=== PATIENT | female | born 1935 | race Hispanic/Latino ===

== ENCOUNTER 2017-12-23 10:35 | Inpatient (IN) | payer MEDICARE, BC ==
[2017-12-23 10:37] VITALS: BMI 24.7
--- NOTE | 2017-12-23 12:15 | RAD ---
HISTORY: Unsteadiness COMPARISON: 08/04/2015 TECHNIQUE: Chest PA and lateral FINDINGS: LUNGS: No active pulmonary disease. PLEURA: No significant pleural effusion identified. No pneumothorax apparent. CARDIOVASCULAR: No radiographic findings to suggest acute or significant cardiovascular disease. OSSEOUS STRUCTURES: No significant abnormalities. VISUALIZED UPPER ABDOMEN: Normal. OTHER FINDINGS: None. IMPRESSION: No active disease. No significant interval change compared to the prior examination(s).
[2017-12-23 12:28] LABS: BASO # 0.1 K/uL (0.0-0.2); BASO % 0.7 % (0.0-2.0); EOS # 0.3 K/uL (0.0-0.7); EOS % 4.1 % (0.0-4.0); HEMOGLOBIN 12.6 g/dL (12.0-16.0); LYMPH # 1.5 K/uL (1.0-4.3); LYMPH % 17.2 % (20.0-40.0); MEAN CELL VOLUME 91.2 fl (81.0-99.0); MEAN CORPUSCULAR HEMOGLOBIN 30.4 pg (27.0-31.0); MEAN CORPUSCULAR HGB CONC 33.3 g/dL (33.0-37.0); MEAN PLATELET VOLUME 8.2 fl (7.2-11.7); MONO # 0.8 K/uL (0.0-0.8); MONO % 8.9 % (0.0-10.0); NEUT # 5.9 K/uL (1.8-7.0); NEUT % 69.1 % (50.0-75.0); NRBC % 0.2 % (0.0-0.0); RBC 4.15 Mil/uL (3.80-5.20); RED CELL DISTRIBUTION WIDTH 14.7 % (11.5-14.5); WHITE BLOOD COUNT 8.5 K/uL (4.8-10.8)
--- NOTE | 2017-12-23 12:29 | ED PDOC ---
HPI: General Adult Time Seen by Provider: 12/23/17 11:09 Chief Complaint (Nursing): Dizziness/Lightheaded Chief Complaint (Provider): Lightheadedness History Per: Patient History/Exam Limitations: no limitations Additional Complaint(s): Pt states she placed a Lidocaine 4% patch on her R hip 5 days ago secondary to pain, next day started feeling itch and noticed generalized rash, resolved on its own the next day. Started feeling unsteady while walking after getting up from sitting position, constant since then. Denies BALLARD, paresthesias, weakness, visual changes, CP, SOB. NIHSS Stroke Scale - Date/Time Evaluation Performed Date Performed: 12/23/17 When Was NIHSS Performed: Baseline - How Severe is the Stroke Level of Consciousness: 0=Alert LOC to Questions: 0=Both comments correct LOC to commands: 0=Obeys both correctly Best Gaze: 0=Normal Visual: 0=No visual loss Facial: 0=Normal Motor Arm - Left: 0=No drift Motor Arm - Right: 0=No drift Motor Leg - Left: 0=No drift Motor Leg - Right: 0=No drift Limb Ataxia: 0=Absent Sensory: 0=Normal Best Language: 0=No aphasia Dysarthia: 0=Normal articulation Extinction & Inattention (Neglect): 0=Normal, no object Score: 0 rTPA Inclusion/Exclusion - Refusal of Treatment Patient Refused Treatment: No - Inclusion Criteria for Altepase Patient is 18 years or Older: Yes The Clinical Diagnosis of Ischemic Stroke That is Causing a Potentially Disabling Neurological Deficit: No Time of Onset is Well Established to be Less Than 270 Minute Before Treatment Would Begin: No Risk/Benefit Discussed With Patient/Family Member Present: No Past Medical History Reviewed: Nursing Documentation, Vital Signs Vital Signs: Last Vital Signs Temp 97.9 F 12/23/17 10:37 Pulse 98 H 12/23/17 10:37 Resp 16 12/23/17 10:37 BP 144/83 12/23/17 10:37 Pulse Ox 96 12/23/17 15:15 - Medical History PMH: Atrial Fibrillation, Cardia Arrhythmia, CVA (Chronic left leg weakness; 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), HTN - Family History Family History: States: Unknown Family Hx - Living Arrangements Living Arrangements: Alone - Social History Current smoker - smoking cessation education provided: No - Home Medications Home Medications: Ambulatory Orders Medication Instructions Recorded Hydrochlorothiazide/Triamter 1 cap PO HS 08/04/15 [Dyazide 25 mg-37.5 mg] Lisinopril [Lisinopril] 10 mg PO QPM 08/04/15 Metformin Hydrochloride/Brenda 1 tab PO BID 08/04/15 [Janumet 500 mg-50 mg] Simvastatin 40 mg PO HS 08/04/15 Sodium Chloride [Nasal Saline 45 1 spr NS TID #1 spr 08/04/15 ml] Warfarin [Coumadin] 5 mg PO DAILY 08/04/15 amLODIPine [Norvasc] 10 mg PO DAILY 08/04/15 - Allergies Allergies/Adverse Reactions: Allergies Allergy/AdvReac Type Severity Reaction Status Date / Time No Known Allergies Allergy Verified 08/04/15 10:21 Review of Systems Constitutional: Negative for: Fever, Chills Eyes: Negative for: Vision Change Cardiovascular: Negative for: Chest Pain, Palpitations Respiratory: Negative for: Cough, Shortness of Breath Gastrointestinal: Negative for: Nausea, Vomiting, Abdominal Pain, Diarrhea Genitourinary Female: Negative for: Dysuria, Hematuria Musculoskeletal: Negative for: Neck Pain, Back Pain Skin: Negative for: Rash, Lesions Neurological: Negative for: Weakness, Numbness, Incoordination, Change in Speech , Confusion, Seizures, Altered Mental Status, Headache, Dizziness Physical Exam - Reviewed Nursing Documentation Reviewed: Yes Vital Signs Reviewed: Yes - Physical Exam Appears: Positive for: Well, No Acute Distress Head Exam: Positive for: ATRAUMATIC, NORMAL INSPECTION Skin: Positive for: Normal Color, Warm, Dry Eye Exam: Positive for: EOMI, PERRL ENT: Positive for: TM Is/Are (R ear canal with cerumen) Neck: Positive for: Normal, Painless ROM, Supple Cardiovascular/Chest: Positive for: Murmur, Irregularly Irregular. Negative for : Bradycardia, Tachycardia Respiratory: Positive for: Normal Breath Sounds. Negative for: Rales, Rhonchi, Wheezing Extremity: Positive for: Normal ROM Neurologic/Psych: Positive for: Alert, regional forester II-XII, Oriented, Cerebellar Tests ( WNL). Negative for: Motor/Sensory Deficits, Aphasia, Facial Droop - Laboratory Results Result Diagrams: 12/23/17 12:20 12/23/17 12:20 - ECG O2 Sat by Pulse Oximetry: 96 Medical Decision Making Medical Decision Makin yo female with unsteady gait. - labs - EKG - CXR - CT head Accession No. : [id number] Patient Name / ID : TANESHA GEORGE / [id number] Exam Date : 12/23/2017 11:28:42 ( Approved ) Study Comment : Sex / Age : F / 82Y Creator : Jeremiah Delgado MD Dictator : Jeremiah Delgado MD Ironworker Foreman : Factory Assembler : Jeremiah Delgado MD Approver2 : Report Date : 12/23/2017 12:13:55 My Comment : HISTORY: Unsteadiness COMPARISON: 08/04/2015 TECHNIQUE: Chest PA and lateral FINDINGS: LUNGS: No active pulmonary disease. PLEURA: No significant pleural effusion identified. No pneumothorax apparent. CARDIOVASCULAR: No radiographic findings to suggest acute or significant cardiovascular disease. OSSEOUS STRUCTURES: No significant abnormalities. VISUALIZED UPPER ABDOMEN: Normal. OTHER FINDINGS: None. IMPRESSION: No active disease. No significant interval change compared to the prior examination(s). Accession No. : [id number] Patient Name / ID : TANESHA GEORGE / [id number] Exam Date : 12/23/2017 12:58:17 ( Approved ) Study Comment : Sex / Age : F / 82Y Creator : Jeremiah Delgado MD Dictator : Jeremiah Delgado MD Ironworker Foreman : Factory Assembler : Jeremiah Delgado MD Approver2 : Report Date : 12/23/2017 13:37:18 My Comment : PROCEDURE: CT HEAD WITHOUT CONTRAST. HISTORY: Unsteadiness COMPARISON: 02/23/2014 TECHNIQUE: Axial computed tomography images were obtained through the head/brain without intravenous contrast. Coronal and sagittal reconstructed images. Radiation dose: Total exam DLP = 893.1 mGy-cm. This CT exam was performed using one or more of the following dose reduction techniques: Automated exposure control, adjustment of the mA and/or kV according to patient size, and/or use of iterative reconstruction technique. FINDINGS: HEMORRHAGE: No intracranial hemorrhage. BRAIN: No mass effect or edema. Cortical and cerebellar atrophy, periventricular small vessel disease. VENTRICLES: Unremarkable. No hydrocephalus. CALVARIUM: Unremarkable. PARANASAL SINUSES: Unremarkable as visualized. No significant inflammatory changes. MASTOID AIR CELLS: Unremarkable as visualized. No inflammatory changes. OTHER FINDINGS: None. IMPRESSION: No acute intracranial abnormalities. No significant findings to account for the clinical presentation. No significant interval change compared to the prior examination(s). Disposition - Clinical Impression Clinical Impression: Unsteady gait - Patient ED Disposition Is Patient to be Admitted: Yes - Disposition Disposition Time: 15:17 Condition: STABLE Forms: 3nder (Eritrean) - Pt Status Changed To: Hospital Disposition Of: Inpatient - Admit Certification Admit to Inpatient:: After my assessment, the patient will require hospitalization for at least two midnights. This is because of the severity of symptoms shown, intensity of services needed, and/or the medical risk in this patient being treated as an outpatient. - POA Present On Arrival: None
[2017-12-23 12:38] LABS: INR 1.6 (0.9-1.2); PARTIAL THROMBOPLASTIN TIME 37.2 Seconds (25.6-37.1); PROTHROMBIN TIME 17.8 Seconds (9.8-13.1)
[2017-12-23 12:52] LABS: ALBUMIN 3.9 g/dL (3.5-5.0); CALCIUM 10.1 mg/dL (8.4-10.2); GFR AFRICAN-AMERICAN 52; GFR NON-AFRICAN AMERICAN 43
[2017-12-23 12:57] LABS: ALT/SGPT 24 U/L (9-52); AST/SGOT 33 U/L (14-36); BLOOD UREA NITROGEN 37 mg/dl (7-17)
--- NOTE | 2017-12-23 13:38 | CT ---
PROCEDURE: CT HEAD WITHOUT CONTRAST. HISTORY: Unsteadiness COMPARISON: 02/23/2014 TECHNIQUE: Axial computed tomography images were obtained through the head/brain without intravenous contrast. Coronal and sagittal reconstructed images. Radiation dose: Total exam DLP = 893.1 mGy-cm. This CT exam was performed using one or more of the following dose reduction techniques: Automated exposure control, adjustment of the mA and/or kV according to patient size, and/or use of iterative reconstruction technique. FINDINGS: HEMORRHAGE: No intracranial hemorrhage. BRAIN: No mass effect or edema. Cortical and cerebellar atrophy, periventricular small vessel disease. VENTRICLES: Unremarkable. No hydrocephalus. CALVARIUM: Unremarkable. PARANASAL SINUSES: Unremarkable as visualized. No significant inflammatory changes. MASTOID AIR CELLS: Unremarkable as visualized. No inflammatory changes. OTHER FINDINGS: None. IMPRESSION: No acute intracranial abnormalities. No significant findings to account for the clinical presentation. No significant interval change compared to the prior examination(s).
[2017-12-23 14:39] LABS: SQUAMOUS EPITHIAL 1 /hpf (0-5); URINE BACTERIA RARE (<OCC); URINE BILIRUBIN NEGATIVE (NEGATIVE); URINE BLOOD SMALL (NEGATIVE); URINE CLARITY SLIGHTY-CLOUDY (Clear); URINE COLOR YELLOW (YELLOW); URINE GLUCOSE (UA) NEG (Normal); URINE LEUKOCYTE ESTERASE NEG Leu/uL (Negative); URINE PROTEIN NEGATIVE (NEGATIVE); URINE UROBILINOGEN 0.2-1.0 mg/dL (0.2-1.0)
--- NOTE | 2017-12-23 15:48 | CP.PCM.HP ---
<Zaid Johnson - Last Filed: 12/23/17 18:12> History of Present Illness - History of Present Illness History of Present Illness: CC: Unsteady Gait HPI: 82 y/o female with hx of HTN, HLD, DM, and Afibb on Coumadin presents with complaints of unsteady gait x 3 days. Pt reports that she has been feeling "woozy" when standing and walking for the past 3 days. Reports that this is not the first time, she has dealt with this on and off for the past few months. Currently walks on her own when at home but uses a walker when outside. Denies any falls or trauma. Denies any loc, focal weakness, numbness, confusion, worsening urinary incontinence (has chronic hx), tremors, back , neck pain, headaches, n/v/d/c, recent illness, dysuria, fever, chills, exertional dyspnea, cp, sob, acute joint pains (hip, knee, back), muscle weakness, memory loss. Has a chronic hx of tingling of her distal extremities but denies any worsening of symptoms. PMD: Dr. Randle PMHX: Afibb, HTN, HLD, DM, Spinal Stenosis, Chronic hearing loss (right), Chronic vision problems BL Surgical Hx: Hysterectomy, Thyroid Nodule resection Medications: Amlodipine 1mg, Lisinopril, Simvastatin 40mg, Sitagliptin, Tramterene/HTZ, Warfarin 5m Allergies: Ciprofloxacin (rash) Social: Lives alone, independent, Former smoker 25 ppy, Denies alcohol use Vials: VSS, afebrile, POCG 117 Orthostatics (Lying 147/60 HR 85, Sitting 146/60 HR 86, Standing 140/58 HR 90) ED Course: CBC wnl CMP wnl Cxray: No acute cardiopulmonary findings EKG: HR [address]: No acute intracranial abnormalities Code Status: Full Present on Admission - Present on Admission Any Indicators Present on Admission: No History of DVT/PE: No History of Uncontrolled Diabetes: No Urinary Catheter: No Decubitus Ulcer Present: No Review of Systems - Constitutional Constitutional: absent: Chills, Frequent Falls, Headache, Weight Gain, Weight Loss - EENT Eyes: Blurred Vision - Cardiovascular Cardiovascular: absent: Chest Pain at Rest, Dyspnea - Respiratory Respiratory: absent: Dyspnea on Exertion - Gastrointestinal Gastrointestinal: absent: Abdominal Pain, Constipation, Cramping - Genitourinary Genitourinary: Urinary Incontinence. absent: Dysuria Past Patient History - Past Social History Smoking Status: Never Smoked - CARDIAC Hx Atrial Fibrillation: Yes Hx Cardia Arrhythmia: Yes Hx Hypertension: Yes - ENDOCRINE/METABOLIC Hx Diabetes Mellitus Type 2: Yes - PSYCHIATRIC Hx Substance Use: No - ANESTHESIA Hx Anesthesia: Yes Meds Allergies/Adverse Reactions: Allergies Allergy/AdvReac Type Severity Reaction Status Date / Time ciprofloxacin Allergy RASH Verified 12/23/17 23:45 Physical Exam - Constitutional Appears: Well, Non-toxic, No Acute Distress - Head Exam Head Exam: NORMAL INSPECTION - Eye Exam Eye Exam: Normal appearance - ENT Exam ENT Exam: Mucous Membranes Moist - Neck Exam Neck exam: Positive for: Normal Inspection - Respiratory Exam Respiratory Exam: Clear to Auscultation Bilateral. absent: Rales, Wheezes - Cardiovascular Exam Cardiovascular Exam: REGULAR RHYTHM, +S1, +S2, Systolic Murmur - GI/Abdominal Exam GI & Abdominal Exam: Normal Bowel Sounds, Soft. absent: Tenderness - Extremities Exam Extremities exam: Negative for: pedal edema - Neurological Exam Neurological exam: Abnormal Gait, Alert, CN II-XII Intact, Oriented x3 - Expanded Neurological Exam Expanded Neurological exam: Ataxia Cranial nerves: EOM's Intact: Normal, Facial Sensation: Normal Ataxia: Yes Cerebellar Function: Finger to Nose: Normal, Heel to [place]: Normal, [place]: Normal Neuro motor strength exam: Left Upper Extremity: 5, Right Upper Extremity: 5, Left Lower Extremity: 5, Right Lower Extremity: 5 - Psychiatric Exam Psychiatric exam: Normal Affect - Skin Skin Exam: Normal Color Results - Vital Signs Recent Vital Signs: Last Vital Signs Temp 97.9 F 12/23/17 10:37 Pulse 98 H 12/23/17 10:37 Resp 16 12/23/17 10:37 BP 144/83 12/23/17 10:37 Pulse Ox 96 12/23/17 15:18 - Labs Result Diagrams: 12/23/17 12:20 12/23/17 12:20 Labs: Laboratory Results - last 24 hr 12/23/17 12/23/17 12/23/17 12:20 12:20 12:20 WBC 8.5 RBC 4.15 Hgb 12.6 Hct 37.9 MCV 91.2 MCH 30.4 MCHC 33.3 RDW 14.7 H Plt Count 257 MPV 8.2 Neut % (Auto) 69.1 Lymph % (Auto) 17.2 L [place] % (Auto) 8.9 Eos % (Auto) 4.1 H Baso % (Auto) 0.7 Neut # (Auto) 5.9 Lymph # (Auto) 1.5 [place] # (Auto) 0.8 Eos # (Auto) 0.3 Baso # (Auto) 0.1 PT 17.8 H INR 1.6 H APTT 37.2 H Sodium 141 Potassium 4.9 Chloride 104 Carbon Dioxide 23 Anion Gap 19 BUN 37 H Creatinine 1.2 Est GFR ( Amer) 52 Est GFR (Non-Af Amer) 43 Random Glucose 117 H Calcium 10.1 Total Bilirubin 0.6 AST 33 ALT 24 Alkaline Phosphatase 47 Troponin I < 0.0120 Total Protein 7.6 Albumin 3.9 Globulin 3.7 Albumin/Globulin Ratio 1.0 Urine Color Urine Clarity Urine pH Ur Specific [place] Urine Protein Urine Glucose (UA) Urine Ketones Urine Blood Urine Nitrate Urine Bilirubin Urine Urobilinogen Ur Leukocyte Esterase Urine RBC (Auto) Urine Microscopic WBC Ur Squamous Epith Cells Urine Bacteria 12/23/17 14:04 WBC RBC Hgb Hct MCV MCH MCHC RDW Plt Count MPV Neut % (Auto) Lymph % (Auto) [place] % (Auto) Eos % (Auto) Baso % (Auto) Neut # (Auto) Lymph # (Auto) [place] # (Auto) Eos # (Auto) Baso # (Auto) PT INR APTT Sodium Potassium Chloride Carbon Dioxide Anion Gap BUN Creatinine Est GFR ( Amer) Est GFR (Non-Af Amer) Random Glucose Calcium Total Bilirubin AST ALT Alkaline Phosphatase Troponin I Total Protein Albumin Globulin Albumin/Globulin Ratio Urine Color Yellow Urine Clarity Slighty-cloudy Urine pH 6.0 Ur Specific [place] 1.015 Urine Protein Negative Urine Glucose (UA) Neg Urine Ketones Negative Urine Blood Small Urine Nitrate Negative Urine Bilirubin Negative Urine Urobilinogen 0.2-1.0 Ur Leukocyte Esterase Neg Urine RBC (Auto) 2 Urine Microscopic WBC 1 Ur Squamous Epith Cells 1 Urine Bacteria Rare Assessment & Plan - Assessment and Plan (Free Text) Assessment: Pt is an 82 years old female with hx of Afibb on coumadin, HTN, HLD, DM admitted for gait instability and lightheadedness upon standing. Gait Instability Feels lightheaded when standing, no vertigo CBC, CMP, electrolytes wnl Head CT wnl Orthostatics wnl Possible etiologies include: Peripheral Neuropathy, Visual Disturbances, Valvular disturbance, Orthostatics Neurology consulted Labs: B12, RPR, TSH, T4 Echo PT/OT Afibb Couagulation studies wnl C/w coumadin home dose HTN Normotensive c/w home meds DM C/w home meds Hypoglycemic protocol HLD C/w home meds Spinal Stenosis Reports right leg pain only when standing; denies pain Sees pain management outpatient Diabetic Diet DVT ppx On Coumadin Tele Monitoring Full Code <Cipriano Tuttle - Last Filed: 12/25/17 07:06> Results - Vital Signs Recent Vital Signs: Last Vital Signs Temp 97.2 F L 12/25/17 04:54 Pulse 61 12/25/17 04:54 Resp 18 12/25/17 04:54 BP 104/58 L 12/25/17 04:54 Pulse Ox 99 12/25/17 04:54 - Labs Result Diagrams: 12/23/17 12:20 12/23/17 12:20 Labs: Laboratory Results - last 24 hr 12/23/17 12/23/17 12/24/17 19:22 19:22 07:30 ESR 38 H PT INR POC Glucose (mg/dL) Hemoglobin A1c C-Reactive Protein Folate 8.4 TSH 3rd Generation RPR Nonreactive 12/24/17 12/24/17 12/24/17 07:30 07:30 10:57 ESR PT INR POC Glucose (mg/dL) 110 Hemoglobin A1c 5.9 C-Reactive Protein 7.00 Folate TSH 3rd Generation 2.18 RPR 12/24/17 12/24/17 12/24/17 16:16 19:33 21:19 ESR PT 21.0 H INR 1.9 H POC Glucose (mg/dL) 103 86 Hemoglobin A1c C-Reactive Protein Folate TSH 3rd Generation RPR 12/25/17 04:20 ESR PT 18.8 H INR 1.7 H POC Glucose (mg/dL) Hemoglobin A1c C-Reactive Protein Folate TSH 3rd Generation RPR Attending/Attestation - Attestation I have personally seen and examined this patient.: Yes I have fully participated in the care of the patient.: Yes I have reviewed all pertinent clinical information: Yes
[2017-12-23] MEDS ORDERED: Dextrose 50% SYRINGE Inj (50 ml) IV PRN (16:41)
[2017-12-23] MEDS ORDERED: Glucagon Recombinant 1 mg Inj IM PRN (16:41)
[2017-12-23] MEDS ORDERED: Patient's Own Med (Sitagliptin Phos/Metformin Hcl [Janumet 50-500 Mg Tablet] 1 TAB) PO SCH (17:00)
[2017-12-23] MEDS: Insulin Regular 100 units/ml SC SCH (23:17)
--- NOTE | 2017-12-23 23:48 | CARD ---
APPROVED REPORT EKG Measurement Heart [id number] <Conclusion> Atrial fibrillation Abnormal ECG
[2017-12-24] MEDS: hydroCHLOROthiazide-Triamterene 25 mg-37.5 mg Cap UD PO SCH ×2 (00:15→17:55)
--- NOTE | 2017-12-24 08:12 | CP.PCM.PN ---
<Emily Rangel - Last Filed: 12/24/17 11:57> Subjective - Date & Time of Evaluation Date of Evaluation: 12/24/17 Time of Evaluation: 07:20 - Subjective Subjective: Pt seen and evaluated at bedside with attending; no acute events overnight. Reports that she feels "off balance" when she stands up. No new complaints/ issues. Objective - Vital Signs/Intake and Output Vital Signs (last 24 hours): Temp Pulse Resp BP Pulse Ox 97.8 F 64 18 133/78 96 12/24/17 07:55 12/24/17 07:55 12/24/17 07:55 12/24/17 07:55 12/24/17 07:55 - Medications Medications: Current Medications Amlodipine Besylate (Norvasc) 10 mg PO DAILY [facility] Atorvastatin Calcium (Lipitor) 20 mg PO DAILY [facility] Dextrose (Dextrose 50% Inj) 0 ml IV STAT PRN; Protocol PRN Reason: Hypoglycemia Protocol Dextrose (Glutose 15) 0 gm PO ONCE PRN; Protocol PRN Reason: Hypoglycemia Protocol Glucagon (Glucagen Diagnostic Kit) 0 mg IM STAT PRN; Protocol PRN Reason: Hypoglycemia Protocol Insulin Human Regular (Humulin R) 0 units SC ACHS [place] PRN Reason: Protocol Last Admin: 12/23/17 23:17 Dose: Not Given Lisinopril (Zestril) 10 mg PO QPM [facility] Last Admin: 12/24/17 00:16 Dose: Not Given Metformin HCl (Glucophage) 500 mg PO BID [facility] Last Admin: 12/24/17 00:15 Dose: Not Given Sitagliptin Phosphate (Januvia) 50 mg PO BID [facility] Last Admin: 12/24/17 00:16 Dose: Not Given Triamterene/HCTZ (Dyazide 25 Mg-37.5 Mg) 1 cap PO QPM [facility] Last Admin: 12/24/17 00:15 Dose: Not Given Warfarin Sodium (Coumadin) 5 mg PO DAILY [facility] PRN Reason: Protocol Stop: 12/24/17 09:01 - Labs Labs: 12/23/17 12:20 12/23/17 12:20 PT 17.8 Seconds (9.8-13.1) H 12/23/17 12:20 INR 1.6 (0.9-1.2) H 12/23/17 12:20 APTT 37.2 Seconds (25.6-37.1) H 12/23/17 12:20 - Constitutional Appears: No Acute Distress - Eye Exam Eye Exam: Normal appearance - ENT Exam ENT Exam: Mucous Membranes Moist - Respiratory Exam Respiratory Exam: Clear to Ausculation Bilateral, NORMAL BREATHING PATTERN. absent: Respiratory Distress - Cardiovascular Exam Cardiovascular Exam: +S1, +S2, Murmur - GI/Abdominal Exam GI & Abdominal Exam: Soft, Normal Bowel Sounds - Extremities Exam Extremities Exam: absent: Pedal Edema - Back Exam Back Exam: NORMAL INSPECTION - Neurological Exam Neurological Exam: Alert, Awake, Oriented x3 - Skin Skin Exam: Dry, Normal Color, Warm Assessment and Plan - Assessment and Plan (Free Text) Assessment: 82 yo F with PMHx Afib (on coumadin), HTN, HLD, DM admitted for loss of balance , gait instability and lightheadedness upon standing. Plan: # Gait Instability - Head CT wnl - Possible etiologies include: Peripheral Neuropathy, Visual Disturbances, Valvular disturbance - Neurology consulted - CRP, TSH, RUBENS, Immunofixation, ESR, Carotid/Vertebral u/ s, Brain MRI w/o contrast - Labs: B12wnl, TSH wnl, Folate pending, RPR pending - Echo - pending - PT/OT # Atrial Fibrillation - Couagulation studies wnl - Continue coumadin home dose # Hypertension - Normotensive - Continue home meds # Diabetes Mellitus - Continue home meds - Hypoglycemia protocol and insulin coverage scale # Hyperlipidemia - Continue with home meds # Spinal Stenosis - Reports right leg pain only when standing; denies pain - Sees pain management outpatient # DVT ppx - Pt is taking home dose coumadin <Gerry Patiño - Last Filed: 12/24/17 19:14> Objective - Vital Signs/Intake and Output Vital Signs (last 24 hours): Temp Pulse Resp BP Pulse Ox 98.1 F 74 17 117/77 98 12/24/17 16:27 12/24/17 16:27 12/24/17 16:27 12/24/17 16:27 12/24/17 16:27 - Medications Medications: Current Medications Amlodipine Besylate (Norvasc) 10 mg PO DAILY [facility] Last Admin: 12/24/17 08:41 Dose: 10 mg Atorvastatin Calcium (Lipitor) 20 mg PO DAILY [facility] Last Admin: 12/24/17 08:41 Dose: 20 mg Dextrose (Dextrose 50% Inj) 0 ml IV STAT PRN; Protocol PRN Reason: Hypoglycemia Protocol Dextrose (Glutose 15) 0 gm PO ONCE PRN; Protocol PRN Reason: Hypoglycemia Protocol Glucagon (Glucagen Diagnostic Kit) 0 mg IM STAT PRN; Protocol PRN Reason: Hypoglycemia Protocol Insulin Human Regular (Humulin R) 0 units SC ACHS [place] PRN Reason: Protocol Last Admin: 12/24/17 17:56 Dose: Not Given Lisinopril (Zestril) 10 mg PO QPM [facility] Last Admin: 12/24/17 17:57 Dose: 10 mg Metformin HCl (Glucophage) 500 mg PO BID [facility] Last Admin: 12/24/17 17:55 Dose: 500 mg Sitagliptin Phosphate (Januvia) 50 mg PO BID [facility] Last Admin: 12/24/17 17:57 Dose: 50 mg Triamterene/HCTZ (Dyazide 25 Mg-37.5 Mg) 1 cap PO QPM [facility] Last Admin: 12/24/17 17:55 Dose: 1 cap Warfarin Sodium (Coumadin) 5 mg PO QD5 [facility] PRN Reason: Protocol Stop: 12/24/17 17:01 - Labs Labs: 12/23/17 12:20 12/23/17 12:20 PT 17.8 Seconds (9.8-13.1) H 12/23/17 12:20 INR 1.6 (0.9-1.2) H 12/23/17 12:20 APTT 37.2 Seconds (25.6-37.1) H 12/23/17 12:20 Attending/Attestation - Attestation I have personally seen and examined this patient.: Yes I have fully participated in the care of the patient.: Yes I have reviewed all pertinent clinical information, including history, physical exam and plan: Yes
[2017-12-24] MEDS: Insulin Regular 100 units/ml SC SCH ×4 (08:26→22:08)
--- NOTE | 2017-12-24 16:57 | MRI ---
PROCEDURE: MRI BRAIN WITHOUT CONTRAST HISTORY: R/O DIETARY MANAGER STROKE COMPARISON: Unenhanced head CT 12/23/2017, unenhanced brain MRI 10/22/2012. TECHNIQUE: Multiplanar, multisequence MR images of the brain were obtained without intravenous contrast enhancement. FINDINGS: HEMORRHAGE: None DWI: No definite intracranial hemorrhage is identified. BRAIN PARENCHYMA: Diffuse cerebral atrophy and chronic microangiopathy are reiterated with atrophy appearing slightly increased in the interval. No mass is identified or suspicious extra-axial fluid collection in the midline brain and appears diffusely unremarkable nevertheless. Posterior fossa contents remain unremarkable including the brainstem. A near empty sella is noted. VENTRICLES: Unremarkable. No hydrocephalus. CRANIUM: Unremarkable. ORBITS: The ophthalmological device seen related to the right globe once again. PARANASAL SINUSES/MASTOIDS: Small cystic polyp right maxillary sinus alveolar recess. VASCULAR SYSTEM: Skull base flow voids intact. OTHER FINDINGS: None. IMPRESSION: Generally stable age related neuro degenerative change are identified without acute intracranial findings. Follow up CT or MRI are available as clinically warranted.
[2017-12-24 17:39] LABS: FOLATE 8.4 ng/mL
--- NOTE | 2017-12-24 17:51 | US ---
PROCEDURE: Duplex ultrasound of the carotid and vertebral arteries. HISTORY: ASSESS STENOSIS COMPARISON: 10/21/2012 TECHNIQUE: Grayscale and duplex Doppler evaluation of the cervical carotid and vertebral arteries were performed. The common carotid, carotid bifurcations and cervical ICA and proximal ECA were evaluated. The vertebral arteries were evaluated for gross patency and direction. FINDINGS: RIGHT CAROTID ARTERIES: Common Carotid Artery: Normal. Maximal flow velocity of 90.8 cm/s. Carotid Bifurcation: Heterogeneous plaque formation. Internal Carotid Artery:Heterogeneous plaque formation. Tortuous right ICA Maximal flow velocity of 96.6 cm/s. External Carotid Artery (proximal branches): Normal. Maximal flow velocity of 143.1 cm/s. ICA/CCA Ratio: 1.1 LEFT CAROTID ARTERIES: Common Carotid Artery: Intimal thickening is present Maximal flow velocity of 94.7 cm/s. Carotid Bifurcation: Heterogeneous plaque formation. Internal Carotid Artery:Heterogeneous plaque formation. Maximal flow velocity of 94.5 cm/s. External Carotid Artery (proximal branches): Heterogeneous plaque formation. Maximal flow velocity of 2238.8 cm/s. ICA/CCA Ratio: 1.3 VERTEBRAL ARTERIES: Right Vertebral Artery: Patent. Antegrade flow. Left Vertebral Artery: Patent. Antegrade flow. OTHER FINDINGS: None. IMPRESSION: Right ICA degree of stenosis: Less than 50% Left ICA degree of stenosis: Less than 50% No significant interval change compared to the prior examination(s). Reference Internal Carotid Artery (ICA) Peak Systolic Velocity (PSV) for above: 1. Less than 50% stenosis less than 125 cm/s peak systolic velocity 2. 50-69% stenosis 125-230cm/s peak systolic velocity 3. Greater than 70% but less than near occlusion greater than 230 cm/s peak systolic velocity
--- NOTE | 2017-12-24 18:57 | CP.PCM.CON ---
History of Present Illness - History of Present Illness History of Present Illness: CONSULT DICTATED VERTEBRO BASILAR INSUFFICIENCY LUMOSACRAL STENOSIS WITH NEUROPATHY MRI SMALL VESSEL DISEASE CAROTID NO STENOSIS CHEC MRI L/S SPINE PT KEEP INR 2.2-2.5 ADJUST COUMADIN IF ANY RECURRENT SYMPTOMS I SUGGEST TO ADD ECOTRIN 81 MG FALL PRECAUTION GOOD CANDIDATE FOR AC REHAB THANKS Past Patient History - Past Medical History & Family History Past Medical History?: Yes - Past Social History Smoking Status: Former Smoker - CARDIAC Hx Cardiac Disorders: Yes Hx Atrial Fibrillation: Yes Hx Cardia Arrhythmia: Yes Hx Hypercholesterolemia: Yes Hx Hypertension: Yes - PULMONARY Hx Respiratory Disorders: No - NEUROLOGICAL Hx Neurological Disorder: Yes HX Cerebrovascular Accident: Yes - HEENT Hx HEENT Problems: Yes - RENAL Hx Chronic Kidney Disease: No - ENDOCRINE/METABOLIC Hx Endocrine Disorders: Yes Hx Diabetes Mellitus Type 2: Yes - HEMATOLOGICAL/ONCOLOGICAL Hx Blood Disorders: No - INTEGUMENTARY Hx Dermatological Problems: No - MUSCULOSKELETAL/RHEUMATOLOGICAL Hx Musculoskeletal Disorders: Yes Hx Falls: No Hx Spinal Stenosis: Yes - GASTROINTESTINAL Hx Gastrointestinal Disorders: No - GENITOURINARY/GYNECOLOGICAL Hx Genitourinary Disorders: No - PSYCHIATRIC Hx Psychophysiologic Disorder: No Hx Substance Use: No - SURGICAL HISTORY Hx Surgeries: Yes Hx Hysterectomy: Yes Other/Comment: thyroid nodule resection - ANESTHESIA Hx Anesthesia: Yes Hx Anesthesia Reactions: No Hx Malignant Hyperthermia: No Has any member of the family had a problem w/ anesthesia?: No Meds Allergies/Adverse Reactions: Allergies Allergy/AdvReac Type Severity Reaction Status Date / Time ciprofloxacin Allergy RASH Verified 12/23/17 23:45 - Medications Medications: Current Medications Amlodipine Besylate (Norvasc) 10 mg PO DAILY [facility] Last Admin: 12/24/17 08:41 Dose: 10 mg Atorvastatin Calcium (Lipitor) 20 mg PO DAILY [facility] Last Admin: 12/24/17 08:41 Dose: 20 mg Dextrose (Dextrose 50% Inj) 0 ml IV STAT PRN; Protocol PRN Reason: Hypoglycemia Protocol Dextrose (Glutose 15) 0 gm PO ONCE PRN; Protocol PRN Reason: Hypoglycemia Protocol Glucagon (Glucagen Diagnostic Kit) 0 mg IM STAT PRN; Protocol PRN Reason: Hypoglycemia Protocol Insulin Human Regular (Humulin R) 0 units SC ACHS [facility] PRN Reason: Protocol Last Admin: 12/24/17 17:56 Dose: Not Given Lisinopril (Zestril) 10 mg PO QPM [facility] Last Admin: 12/24/17 17:57 Dose: 10 mg Metformin HCl (Glucophage) 500 mg PO BID [facility] Last Admin: 12/24/17 17:55 Dose: 500 mg Sitagliptin Phosphate (Januvia) 50 mg PO BID [facility] Last Admin: 12/24/17 17:57 Dose: 50 mg Triamterene/HCTZ (Dyazide 25 Mg-37.5 Mg) 1 cap PO QPM [facility] Last Admin: 12/24/17 17:55 Dose: 1 cap Warfarin Sodium (Coumadin) 5 mg PO QD5 [facility] PRN Reason: Protocol Stop: 12/24/17 17:01 Results - Vital Signs Recent Vital Signs: Last Vital Signs Temp 98.1 F 12/24/17 16:27 Pulse 74 12/24/17 16:27 Resp 17 12/24/17 16:27 BP 117/77 12/24/17 16:27 Pulse Ox 98 12/24/17 16:27 - Labs Result Diagrams: 12/23/17 12:20 12/23/17 12:20 Labs: Laboratory Results - last 24 hr 12/23/17 12/23/17 12/23/17 19:22 19:22 20:08 ESR POC Glucose (mg/dL) 89 Hemoglobin A1c C-Reactive Protein Vitamin B12 374 Folate 8.4 TSH 3rd Generation 0.88 RPR Nonreactive 12/24/17 12/24/17 12/24/17 05:54 07:30 07:30 ESR 38 H POC Glucose (mg/dL) 102 Hemoglobin A1c C-Reactive Protein 7.00 Vitamin B12 Folate TSH 3rd Generation 2.18 RPR 12/24/17 12/24/17 12/24/17 07:30 10:57 16:16 ESR POC Glucose (mg/dL) 110 103 Hemoglobin A1c 5.9 C-Reactive Protein Vitamin B12 Folate TSH 3rd Generation RPR
[2017-12-24 20:01] LABS: INR 1.9 (0.9-1.2)
--- NOTE | 2017-12-25 04:02 | CON ---
DATE: ATTENDING PHYSICIAN: Cipriano Tuttle MD LOCATION: The patient's room number 404, bed A. REASON FOR CONSULTATION: Unsteady gait. CHIEF COMPLAINT: The patient woke up with unsteady gait which is more than 24 hours period brought her to the hospital for further management. Her neurological point of view, I was called in to evaluate for further management. HISTORY OF PRESENT ILLNESS: Mrs. Giselle Emery is an 82-year-old right-handed female in usual state health, workup on Saturday morning with unsteady gait. This gait problem felt like lightheaded and drunken feeling. No history of fall. No history of new lower back pain of leg weakness. No history of neck pain. No history of visual or bulbar dysfunction associating with these problem. She had a long standing hearing difficulty. There is no new hearing problem at present. PAST MEDICAL HISTORY: Atrial fibrillation, hypertension, dyslipidemia, diabetes mellitus, spinal stenosis, and chronic hearing loss. PAST SURGICAL HISTORY: Thyroid nodule resection and hysterectomy in the past. PERSONAL HISTORY: Denies smoking or alcohol use. ALLERGIES: CIPRO. MEDICATIONS: Lisinopril, Coumadin, simvastatin, sitagliptin, triamterene with hydrochlorothiazide and amlodipine. REVIEW OF SYSTEMS: A 12-point system has been reviewed from new unsteady gait. PHYSICAL EXAMINATION: VITAL SIGNS: Blood pressure 117/77, mean arterial pressure of 90, respiratory rate 16, temperature afebrile. NECK: Supple. No carotid bruit. HEART: Transmitted murmur from heart heard in the carotid area on her left side. Heart sounds are regular with the ejection systolic murmur. EXTREMITIES: No edema in legs. NEUROLOGIC: Mental status examination; The patient is examined in the presence of her family members. She is awake, alert and oriented to person, place and time. Speech is clear. Naming, repetition, fluency, comprehension all within normal limits. Cranial nerve examination; visual field intact. Pupils react to light. Extraocular movement normal. No nystagmus. No facial sensory deficit. Mild facial asymmetry noted. Hearing seems to be unchanged sensorineural hearing loss. Her tongue is midline. Good gag. MOTOR EXAMINATION: On outstretched hand with eyes closed, no drift noted. Power is symmetric on either side. Significant distal muscle groups atrophy noted in both upper extremities and intrinsic muscles groups. Deep tendon reflexes; biceps, brachialis, and triceps absent. Both knees are absent. Both ankles are absent. Plantars are upgoing on both sides. Sensory examination; posterior column is intact, mild distal symmetric sensory motor neuropathy which is probably secondary to underlying diabetes mellitus. Coordination; [id number] testing is intact. Gait; she needs assistance to walk. She feels this is something new to her. She is loosing her balance on either side. WORKUP: MRI of the brain showed periventricular ischemic changes, which is chronic hypertensive disease. The patient also showed evidence of mild atrophy. EKG: Atrial fibrillation, blood work of WBC 8.5, hemoglobin 12.6, hematocrit 37.9, platelet 257. PT 17.8, INR 1.6, sodium 141, potassium 4.9, chloride 104, bicarbonate 23, BUN 37, creatinine 1.2, GFR 43. Random glucose 117, CRP 7, and TSH 2.18, B12 of 314, RPR nonreactive. CONCLUSION: Upon reviewing her history and neurological examination, Ms. 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 RECOMMENDATIONS: 1. Out of bed under Physical Therapy should be initiated to improve her gait. 2. Continue Coumadin and blood pressure medication with statin. If her symptoms are recurrent, I will consider low dose of aspirin on top of warfarin. I strongly consider to keep her INR around 2 to 2.5 region. 3. Diabetic control and blood pressure control have been discussed with the patient. Since, she has lumbar stenosis, I would like to her to have repeat lumbosacral spine. MRI to study the extent of her pathology. If there is no significant problem in the lumbosacral spine, I recommended her to be discharge with the good Physical Therapy or acute rehabilitation to improve her gait. The patient's condition have been discussed with the family members. The patient will be followed while she was in the hospital. Zhen Toribio MD
[2017-12-25 06:52] LABS: INR 1.7 (0.9-1.2); PROTHROMBIN TIME 18.8 Seconds (9.8-13.1)
[2017-12-25] MEDS: Insulin Regular 100 units/ml SC SCH ×4 (09:23→22:00)
--- NOTE | 2017-12-25 09:59 | CP.PCM.PN ---
<Zaid Johnson - Last Filed: 12/25/17 11:36> Subjective - Date & Time of Evaluation Date of Evaluation: 12/25/17 Time of Evaluation: 09:57 - Subjective Subjective: Pt seen and examined at the bedside with attending. Reports that she is still havign unsteadiness in her gait. Denies any other symptoms. Pt informed on the brain imaging findings and neurologist recommendations . Pt is agreeable for subacute rehab. Objective - Vital Signs/Intake and Output Vital Signs (last 24 hours): Temp Pulse Resp BP Pulse Ox 97.4 F L 62 20 103/64 96 12/25/17 08:17 12/25/17 09:23 12/25/17 08:17 12/25/17 09:23 12/25/17 08:17 - Medications Medications: Current Medications Amlodipine Besylate (Norvasc) 10 mg PO DAILY [facility] Last Admin: 12/25/17 09:23 Dose: 10 mg Atorvastatin Calcium (Lipitor) 20 mg PO DAILY [facility] Last Admin: 12/25/17 09:24 Dose: 20 mg Dextrose (Dextrose 50% Inj) 0 ml IV STAT PRN; Protocol PRN Reason: Hypoglycemia Protocol Dextrose (Glutose 15) 0 gm PO ONCE PRN; Protocol PRN Reason: Hypoglycemia Protocol Glucagon (Glucagen Diagnostic Kit) 0 mg IM STAT PRN; Protocol PRN Reason: Hypoglycemia Protocol Insulin Human Regular (Humulin R) 0 units SC ACHS [facility] PRN Reason: Protocol Last Admin: 12/25/17 09:23 Dose: Not Given Lisinopril (Zestril) 10 mg PO QPM [facility] Last Admin: 12/24/17 17:57 Dose: 10 mg Metformin HCl (Glucophage) 500 mg PO BID [facility] Last Admin: 12/25/17 09:23 Dose: 500 mg Sitagliptin Phosphate (Januvia) 50 mg PO BID [facility] Last Admin: 12/25/17 09:23 Dose: 50 mg Triamterene/HCTZ (Dyazide 25 Mg-37.5 Mg) 1 cap PO QPM [facility] Last Admin: 12/24/17 17:55 Dose: 1 cap Warfarin Sodium (Coumadin) 5 mg PO QD5 [facility] PRN Reason: Protocol Stop: 12/24/17 17:01 - Labs Labs: 12/23/17 12:20 12/23/17 12:20 PT 18.8 Seconds (9.8-13.1) H 12/25/17 04:20 INR 1.7 (0.9-1.2) H 12/25/17 04:20 APTT 37.2 Seconds (25.6-37.1) H 12/23/17 12:20 - Constitutional Appears: Well, Non-toxic, No Acute Distress - Head Exam Head Exam: NORMAL INSPECTION - Eye Exam Eye Exam: Normal appearance - ENT Exam ENT Exam: Mucous Membranes Moist - Respiratory Exam Respiratory Exam: Clear to Ausculation Bilateral. absent: Rales, Wheezes - Cardiovascular Exam Cardiovascular Exam: REGULAR RHYTHM, +S1, +S2. absent: Murmur - GI/Abdominal Exam GI & Abdominal Exam: Soft. absent: Distended, Tenderness - Extremities Exam Extremities Exam: Normal Inspection - Neurological Exam Neurological Exam: Alert, Awake, Oriented x3 - Psychiatric Exam Psychiatric exam: Normal Affect - Skin Skin Exam: Normal Color Assessment and Plan - Assessment and Plan (Free Text) Assessment: 82 yo F with PMHx Afib (on coumadin), HTN, HLD, DM admitted for loss of balance , gait instability and lightheadedness upon standing. Will transfer to subacute rehab today. 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, acute rehab recommended, Ecotrin if symptoms unresolved, optimize coumadin dosage - Labs: B12wnl, TSH wnl, Folate wnl, RPR wnl - Echo - pending -Will transfer to subacute rehab - PT/OT- recommended TCU # Atrial Fibrillation - INR 1.7 -As per neurologist recommendations, will increase coumadin dose gradually to achieve INR of 2.2-2.5 -Coumadin 5mg increase to 6mg # Hypertension - Normotensive - Continue home meds # Diabetes Mellitus - Continue home meds - Hypoglycemia protocol and insulin coverage scale # Hyperlipidemia - Continue with home meds # Spinal Stenosis - Reports right leg pain only when standing; denies pain - Sees pain management outpatient -MRI spinal and Lumbar ordered by neurologist # DVT ppx - Pt is taking coumadin <Cipriano Tuttle - Last Filed: 12/27/17 06:59> Objective - Vital Signs/Intake and Output Vital Signs (last 24 hours): Temp Pulse Resp BP Pulse Ox 98.0 F 78 18 121/71 97 12/26/17 12:00 12/26/17 12:00 12/26/17 12:00 12/26/17 12:00 12/26/17 12:00 - Labs Labs: 12/23/17 12:20 12/23/17 12:20 PT 21.7 Seconds (9.8-13.1) H 12/26/17 04:35 INR 1.9 (0.9-1.2) H 12/26/17 04:35 APTT 37.2 Seconds (25.6-37.1) H 12/23/17 12:20 Attending/Attestation - Attestation I have personally seen and examined this patient.: Yes I have fully participated in the care of the patient.: Yes I have reviewed all pertinent clinical information, including history, physical exam and plan: Yes
--- NOTE | 2017-12-25 11:37 | CP.PCM.DIS ---
Addendum entered and electronically signed by Zaid Johnson MD 12/25/17 16:58: Pt will not be discharged to acute rehab today. Will need to make arrangements with social work before discharging. Original Note: <Zaid Johnson - Last Filed: 12/25/17 12:33> Provider - Provider Date of Admission: 12/23/17 15:15 Attending physician: Cipriano Tuttle MD Time Spent in preparation of Discharge (in minutes): 55 Diagnosis - Discharge Diagnosis (1) Unsteady gait Status: Acute (2) Dizziness Status: Acute Hospital Course - Lab Results Lab Results: Most Recent Lab Values WBC 8.5 K/uL (4.8-10.8) 12/23/17 12:20 RBC 4.15 Mil/uL (3.80-5.20) 12/23/17 12:20 Hgb 12.6 g/dL (12.0-16.0) 12/23/17 12:20 Hct 37.9 % (34.0-47.0) 12/23/17 12:20 MCV 91.2 fl (81.0-99.0) 12/23/17 12:20 MCH 30.4 pg (27.0-31.0) 12/23/17 12:20 MCHC 33.3 g/dL (33.0-37.0) 12/23/17 12:20 RDW 14.7 % (11.5-14.5) H 12/23/17 12:20 Plt Count 257 K/uL (130-400) 12/23/17 12:20 MPV 8.2 fl (7.2-11.7) 12/23/17 12:20 Neut % (Auto) 69.1 % (50.0-75.0) 12/23/17 12:20 Lymph % (Auto) 17.2 % (20.0-40.0) L 12/23/17 12:20 [place] % (Auto) 8.9 % (0.0-10.0) 12/23/17 12:20 Eos % (Auto) 4.1 % (0.0-4.0) H 12/23/17 12:20 Baso % (Auto) 0.7 % (0.0-2.0) 12/23/17 12:20 Neut # (Auto) 5.9 K/uL (1.8-7.0) 12/23/17 12:20 Lymph # (Auto) 1.5 K/uL (1.0-4.3) 12/23/17 12:20 [place] # (Auto) 0.8 K/uL (0.0-0.8) 12/23/17 12:20 Eos # (Auto) 0.3 K/uL (0.0-0.7) 12/23/17 12:20 Baso # (Auto) 0.1 K/uL (0.0-0.2) 12/23/17 12:20 ESR 38 mm/hr (0-30) H 12/24/17 07:30 PT 18.8 Seconds (9.8-13.1) H 12/25/17 04:20 INR 1.7 (0.9-1.2) H 12/25/17 04:20 APTT 37.2 Seconds (25.6-37.1) H 12/23/17 12:20 Sodium 141 mmol/l (132-148) 12/23/17 12:20 Potassium 4.9 MMOL/L (3.6-5.0) 12/23/17 12:20 Chloride 104 mmol/L (98-107) 12/23/17 12:20 Carbon Dioxide 23 mmol/L (22-30) 12/23/17 12:20 Anion Gap 19 (10-20) 12/23/17 12:20 BUN 37 mg/dl (7-17) H 12/23/17 12:20 Creatinine 1.2 mg/dl (0.7-1.2) 12/23/17 12:20 Est GFR ( Amer) 52 12/23/17 12:20 Est GFR (Non-Af Amer) 43 12/23/17 12:20 POC Glucose (mg/dL) 102 mg/dL (65-110) 12/25/17 11:03 Random Glucose 117 mg/dL (65-105) H 12/23/17 12:20 Hemoglobin A1c 5.9 % (4.2-6.5) 12/24/17 07:30 Calcium 10.1 mg/dL (8.4-10.2) 12/23/17 12:20 Total Bilirubin 0.6 mg/dl (0.2-1.3) 12/23/17 12:20 AST 33 U/L (14-36) 12/23/17 12:20 ALT 24 U/L (9-52) 12/23/17 12:20 Alkaline Phosphatase 47 U/L (38-126) 12/23/17 12:20 Troponin I < 0.0120 ng/mL (0.00-0.120) 12/23/17 12:20 C-Reactive Protein 7.00 mg/L (0.0-9.9) 12/24/17 07:30 Total Protein 7.6 G/DL (6.3-8.2) 12/23/17 12:20 Albumin 3.9 g/dL (3.5-5.0) 12/23/17 12:20 Globulin 3.7 gm/dL (2.2-3.9) 12/23/17 12:20 Albumin/Globulin Ratio 1.0 (1.0-2.1) 12/23/17 12:20 Vitamin B12 374 pg/mL (239-931) 12/23/17 19:22 Folate 8.4 ng/mL 12/23/17 19:22 TSH 3rd Generation 2.18 mIU/ML (0.46-4.68) 12/24/17 07:30 Urine Color Yellow (YELLOW) 12/23/17 14:04 Urine Clarity Slighty-cloudy (Clear) 12/23/17 14:04 Urine pH 6.0 (5.0-8.0) 12/23/17 14:04 Ur Specific [place] 1.015 (1.003-1.030) 12/23/17 14:04 Urine Protein Negative mg/dL (NEGATIVE) 12/23/17 14:04 Urine Glucose (UA) Neg mg/dL (Normal) 12/23/17 14:04 Urine Ketones Negative mg/dL (NEGATIVE) 12/23/17 14:04 Urine Blood Small (NEGATIVE) 12/23/17 14:04 Urine Nitrate Negative (NEGATIVE) 12/23/17 14:04 Urine Bilirubin Negative (NEGATIVE) 12/23/17 14:04 Urine Urobilinogen 0.2-1.0 mg/dL (0.2-1.0) 12/23/17 14:04 Ur Leukocyte Esterase Neg Rafael/uL (Negative) 12/23/17 14:04 Urine RBC (Auto) 2 /hpf (0-3) 12/23/17 14:04 Urine Microscopic WBC 1 /hpf (0-5) 12/23/17 14:04 Ur Squamous Epith Cells 1 /hpf (0-5) 12/23/17 14:04 Urine Bacteria Rare (<OCC) 12/23/17 14:04 Serum Immunofixation Detected (Not Detected) H 12/24/17 07:30 RPR Nonreactive (NONREACTIVE) 12/23/17 19:22 - Hospital Course Hospital Course: Consultations: Neurology Hospital Course: Pt is an 82 y/o female who came to ED with complaints of unsteady gait and lightheadedness upon standing. Stroke workup was negative. She was evaluated by neurology and had Brain MRI, Carotid U/S completed. 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 Neurologist also recommended Acute Rehab for pt's gait instability. Pt still has studies to complete including Echo, Lumbar/Sacral MRI. Coumadin dosage will also gradually be increased to an INR of 2.2-2.5. Discharge medications: Pt's coumadin home dose increased to 6mg daily. No other medication changes to home meds. Discharge Exam - Head Exam Head Exam: NORMAL INSPECTION Discharge Plan - Follow Up Plan Condition: STABLE Disposition: REHAB FACILITY/REHAB UNIT Instructions: Weakness (GEN) Referrals: Zhen Toribio MD [Medical Doctor] - Gino Mcpherson MD [Staff Provider] - <Cipriano Tuttle - Last Filed: 12/27/17 07:02> Provider - Provider Date of Admission: 12/23/17 15:15 Attending physician: Cipriano Tuttle MD Hospital Course - Lab Results Lab Results: Most Recent Lab Values WBC 8.5 K/uL (4.8-10.8) 12/23/17 12:20 RBC 4.15 Mil/uL (3.80-5.20) 12/23/17 12:20 Hgb 12.6 g/dL (12.0-16.0) 12/23/17 12:20 Hct 37.9 % (34.0-47.0) 12/23/17 12:20 MCV 91.2 fl (81.0-99.0) 12/23/17 12:20 MCH 30.4 pg (27.0-31.0) 12/23/17 12:20 MCHC 33.3 g/dL (33.0-37.0) 12/23/17 12:20 RDW 14.7 % (11.5-14.5) H 12/23/17 12:20 Plt Count 257 K/uL (130-400) 12/23/17 12:20 MPV 8.2 fl (7.2-11.7) 12/23/17 12:20 Neut % (Auto) 69.1 % (50.0-75.0) 12/23/17 12:20 Lymph % (Auto) 17.2 % (20.0-40.0) L 12/23/17 12:20 [place] % (Auto) 8.9 % (0.0-10.0) 12/23/17 12:20 Eos % (Auto) 4.1 % (0.0-4.0) H 12/23/17 12:20 Baso % (Auto) 0.7 % (0.0-2.0) 12/23/17 12:20 Neut # (Auto) 5.9 K/uL (1.8-7.0) 12/23/17 12:20 Lymph # (Auto) 1.5 K/uL (1.0-4.3) 12/23/17 12:20 [place] # (Auto) 0.8 K/uL (0.0-0.8) 12/23/17 12:20 Eos # (Auto) 0.3 K/uL (0.0-0.7) 12/23/17 12:20 Baso # (Auto) 0.1 K/uL (0.0-0.2) 12/23/17 12:20 ESR 38 mm/hr (0-30) H 12/24/17 07:30 PT 21.7 Seconds (9.8-13.1) H 12/26/17 04:35 INR 1.9 (0.9-1.2) H 12/26/17 04:35 APTT 37.2 Seconds (25.6-37.1) H 12/23/17 12:20 Sodium 141 mmol/l (132-148) 12/23/17 12:20 Potassium 4.9 MMOL/L (3.6-5.0) 12/23/17 12:20 Chloride 104 mmol/L (98-107) 12/23/17 12:20 Carbon Dioxide 23 mmol/L (22-30) 12/23/17 12:20 Anion Gap 19 (10-20) 12/23/17 12:20 BUN 37 mg/dl (7-17) H 12/23/17 12:20 Creatinine 1.2 mg/dl (0.7-1.2) 12/23/17 12:20 Est GFR ( Amer) 52 12/23/17 12:20 Est GFR (Non-Af Amer) 43 12/23/17 12:20 POC Glucose (mg/dL) 135 mg/dL (65-110) H 12/26/17 10:46 Random Glucose 117 mg/dL (65-105) H 12/23/17 12:20 Hemoglobin A1c 5.9 % (4.2-6.5) 12/24/17 07:30 Calcium 10.1 mg/dL (8.4-10.2) 12/23/17 12:20 Total Bilirubin 0.6 mg/dl (0.2-1.3) 12/23/17 12:20 AST 33 U/L (14-36) 12/23/17 12:20 ALT 24 U/L (9-52) 12/23/17 12:20 Alkaline Phosphatase 47 U/L (38-126) 12/23/17 12:20 Troponin I < 0.0120 ng/mL (0.00-0.120) 12/23/17 12:20 C-Reactive Protein 7.00 mg/L (0.0-9.9) 12/24/17 07:30 Total Protein 7.6 G/DL (6.3-8.2) 12/23/17 12:20 Albumin 3.9 g/dL (3.5-5.0) 12/23/17 12:20 Globulin 3.7 gm/dL (2.2-3.9) 12/23/17 12:20 Albumin/Globulin Ratio 1.0 (1.0-2.1) 12/23/17 12:20 Angiotensin Convert Enz 10 U/L (9-67) 03/27/18 07:30 Vitamin B12 374 pg/mL (239-931) 12/23/17 19:22 Folate 8.4 ng/mL 12/23/17 19:22 TSH 3rd Generation 2.18 mIU/ML (0.46-4.68) 12/24/17 07:30 Urine Color Yellow (YELLOW) 12/23/17 14:04 Urine Clarity Slighty-cloudy (Clear) 12/23/17 14:04 Urine pH 6.0 (5.0-8.0) 12/23/17 14:04 Ur Specific [place] 1.015 (1.003-1.030) 12/23/17 14:04 Urine Protein Negative mg/dL (NEGATIVE) 12/23/17 14:04 Urine Glucose (UA) Neg mg/dL (Normal) 12/23/17 14:04 Urine Ketones Negative mg/dL (NEGATIVE) 12/23/17 14:04 Urine Blood Small (NEGATIVE) 12/23/17 14:04 Urine Nitrate Negative (NEGATIVE) 12/23/17 14:04 Urine Bilirubin Negative (NEGATIVE) 12/23/17 14:04 Urine Urobilinogen 0.2-1.0 mg/dL (0.2-1.0) 12/23/17 14:04 Ur Leukocyte Esterase Neg Rafael/uL (Negative) 12/23/17 14:04 Urine RBC (Auto) 2 /hpf (0-3) 12/23/17 14:04 Urine Microscopic WBC 1 /hpf (0-5) 12/23/17 14:04 Ur Squamous Epith Cells 1 /hpf (0-5) 12/23/17 14:04 Urine Bacteria Rare (<OCC) 12/23/17 14:04 Serum Immunofixation Detected (Not Detected) H 12/24/17 07:30 RPR Nonreactive (NONREACTIVE) 12/23/17 19:22 Attending/Attestation - Attestation I have personally seen and examined this patient.: Yes I have fully participated in the care of the patient.: Yes I have reviewed all pertinent clinical information, including history, physical exam and plan: Yes
[2017-12-25 12:07] VITALS: RESP 18
--- NOTE | 2017-12-25 14:38 | PQF GENQUE ---
Dr. Tuttle, Please clarify the type of atrial fibrillation: if known >> Chronic >> Paroxysmal >> Permanent >> Persistent >> Other (please specify type) >> Clinically unable to determine >> Unknown H and P: Pt is an 82 years old female with hx of Afibb on coumadin, This form is a permanent part of the medical record Clarification of your documentation is requested to better reflect the severity of illness and intensity of treatment of your patient. Indicators present [] Specify: [] [] Specify: [] [] Specify: [] [] Specify: [] Location in the medical record that reflects the above clinical findings: [] Treatment Provided: [x] as per protective signal superintendent PHYSICIAN'S RESPONSE Based on your medical judgment of the clinical indicators outlined above please clarify the following: [x] Practitioner response Pt has chronic Atrial fibrillation [] If unable to determine, please check the box, sign and date. Present On Admission (POA) Indicator: [x] Present at the time of admission Yes [] Not present at the time of admission [] Clinically Undetermined In responding to this query, please exercise your independent professional judgment. The fact that a question is asked does not imply that any particular answer is desired or expected. Thank you for your clarification on this documentation. If you have any questions please call. * Thank you, Shena Hall RN ext. #[phone] MTDD
--- NOTE | 2017-12-25 15:58 | MRI ---
PROCEDURE: MR LUMBAR SPINE WITHOUT CONTRAST HISTORY: lumbosacral stenosis COMPARISON: None available. TECHNIQUE: Multiecho multiplanar sequences were performed through the lumbar spine without the use of intravenous contrast. FINDINGS: Lumbar curvature is interrupted by a minimal grade 1 spondylolisthesis ease at L3-4 L4-5 including L3 slightly anterior to L4 and L4 mid barely anterior to L5. This appears to be on the basis of facet arthropathy with spondylolysis not clearly identified. Marked disc height loss and desiccation identified L3-4 and L4-5 as well as L5-S1 with only desiccation noted L1-2 and L2-3. Very degenerative endplate changes seen at L4-5 and L5-S1 somewhat. No suspicious matter signal changes. Conus medullaris appears normal as imaged terminating at the L1 vertebral level with prevertebral paraspinal soft tissues diffusely unremarkable. T12-L1: No disc herniation, spinal canal stenosis or neural foraminal narrowing. L1-2: No disc herniation, spinal canal stenosis or neural foraminal narrowing. L2-3: No disc herniation, spinal canal stenosis or neural foraminal narrowing. L3-4: No disc herniation identified. Iltl-dz-tibokdpo central stenosis identified on the basis of spondylolisthesis and facet arthropathy and limited scoliotic deformity resulting in right greater than left stanley canal stenosis. Generalized disc bulging appears mild with the right lateral recess is severely stenosed. Mild left and no right neural foraminal stenosis identified. L4-5: No disc herniation. Moderate central canal stenosis appreciated due to spondylolisthesis and marked facet joint degenerative arthropathy slightly greater the left and right stanley canal. Severe right and no left neural foraminal stenosis appreciated with asymmetry likely a function of scoliosis. L5-S1: No disc herniation, spinal canal stenosis or neural foraminal narrowing. Minimal disc bulging appreciated. OTHER FINDINGS: None. IMPRESSION: Limited spondylolisthesis identified L3-4 and L4-5 contributing to qdrj-kt-nefqjvud central canal stenosis and variable neural foraminal stenosis at L3-4 and L4-5 as discussed above. No disc herniation identified throughout.
[2017-12-25] MEDS: hydroCHLOROthiazide-Triamterene 25 mg-37.5 mg Cap UD PO SCH (17:34)
--- NOTE | 2017-12-25 18:29 | CARD ---
APPROVED REPORT EXAM: Two-dimensional and M-mode echocardiogram with Doppler and color Doppler. Other Information Quality : GoodRhythm : NSR INDICATION Murmur 2D DIMENSIONS IVSd1.25 (0.7-1.1cm)LVDd3.39 (3.9-5.9cm) LVOT Diameter1.19 (1.8-2.4cm)PWd1.03 (0.7-1.1cm) IVSs1.47 (0.8-1.2cm)LVDs2.05 (2.5-4.0cm) FS (%) 39.7 %PWs1.32 (0.8-1.2cm) LVEF (%)55.0 (>50%) M-Mode DIMENSIONS Left Atrium (MM)6.09 (2.5-4.0cm)IVSd1.26 (0.7-1.1cm) Aortic Root2.50 (2.2-3.7cm)LVDd3.79 (4.0-5.6cm) PWd1.24 (0.7-1.1cm)IVSs1.47 cm FS (%) 34 %LVDs2.50 (2.0-3.8cm) PWs1.76 cm Aortic Valve AoV Peak Kwbexyqb998.6cm/sAoV VTI63.0cmAO Peak GR.67mmHg LVOT Peak Pgblslan97.6cm/sLVOT VTI18.98cmAO Mean GR.27mmHg MATEO (VMAX)0.11qs8WOW (VTI)0.20ze6ZX P 1/2 Bwsu197yn Mitral Valve MV DECEL FQQX965ztDP BBI120wzZ/A ratio0.0 MVA (PHT)1.45cm2 TDI E/Lateral E'0.0E/Medial E'0.0 Pulmonary Valve PV Peak Koxyioby736.7cm/s Tricuspid Valve TR Peak Xtoowprf919oz/sRAP UTRZUOHN42ahJbMS Peak Gr.20mmHg JGCW86zcKp LEFT VENTRICLE The left ventricle is normal size. There is mild concentric left ventricular hypertrophy. The left ventricular function is normal. The left ventricular ejection fraction is within the normal range. There is normal LV segmental wall motion. A Fib RIGHT VENTRICLE The right ventricle is normal size. There is normal right ventricular wall thickness. The right ventricular systolic function is normal. ATRIA The left atrium is severely dilated. The right atrium size is normal. AORTIC VALVE The aortic valve is severely calcified. There is mild aortic regurgitation. There is severe valvular aortic stenosis. MITRAL VALVE The mitral valve is calcified and displays decreased opening. There is severe mitral valve stenosis. There is no mitral valve regurgitation noted. TRICUSPID VALVE The tricuspid valve is normal in structure. There is no tricuspid valve regurgitation noted. PULMONIC VALVE The pulmonary valve is normal in structure. There is no pulmonic valvular regurgitation. GREAT VESSELS The aortic root is normal in size. The IVC is normal in size and collapses >50% with inspiration. PERICARDIAL EFFUSION The pericardium appears normal. <Conclusion> The left ventricle is normal size. There is mild concentric left ventricular hypertrophy. The left ventricular function is normal. The left ventricular ejection fraction is within the normal range. There is normal LV segmental wall motion. The aortic valve is severely calcified.There is severe valvular aortic stenosis. There is mild aortic regurgitation. The mitral valve is calcified and displays decreased opening. There is severe mitral valve stenosis.
[2017-12-26 06:12] LABS: INR 1.9 (0.9-1.2); PROTHROMBIN TIME 21.7 Seconds (9.8-13.1)
[2017-12-26] MEDS: Insulin Regular 100 units/ml SC SCH ×2 (06:57→13:34)
--- NOTE | 2017-12-26 12:14 | CP.PCM.DIS ---
Provider - Provider Date of Admission: 12/23/17 15:15 Attending physician: Cipriano Tuttle MD Time Spent in preparation of Discharge (in minutes): 55 Diagnosis - Discharge Diagnosis (1) Unsteady gait Status: Acute (2) Dizziness Status: Acute (3) Aortic stenosis Status: Acute (4) Atrial fibrillation Status: Acute Hospital Course - Lab Results Lab Results: Most Recent Lab Values WBC 8.5 K/uL (4.8-10.8) 12/23/17 12:20 RBC 4.15 Mil/uL (3.80-5.20) 12/23/17 12:20 Hgb 12.6 g/dL (12.0-16.0) 12/23/17 12:20 Hct 37.9 % (34.0-47.0) 12/23/17 12:20 MCV 91.2 fl (81.0-99.0) 12/23/17 12:20 MCH 30.4 pg (27.0-31.0) 12/23/17 12:20 MCHC 33.3 g/dL (33.0-37.0) 12/23/17 12:20 RDW 14.7 % (11.5-14.5) H 12/23/17 12:20 Plt Count 257 K/uL (130-400) 12/23/17 12:20 MPV 8.2 fl (7.2-11.7) 12/23/17 12:20 Neut % (Auto) 69.1 % (50.0-75.0) 12/23/17 12:20 Lymph % (Auto) 17.2 % (20.0-40.0) L 12/23/17 12:20 Dawes % (Auto) 8.9 % (0.0-10.0) 12/23/17 12:20 Eos % (Auto) 4.1 % (0.0-4.0) H 12/23/17 12:20 Baso % (Auto) 0.7 % (0.0-2.0) 12/23/17 12:20 Neut # (Auto) 5.9 K/uL (1.8-7.0) 12/23/17 12:20 Lymph # (Auto) 1.5 K/uL (1.0-4.3) 12/23/17 12:20 Dawes # (Auto) 0.8 K/uL (0.0-0.8) 12/23/17 12:20 Eos # (Auto) 0.3 K/uL (0.0-0.7) 12/23/17 12:20 Baso # (Auto) 0.1 K/uL (0.0-0.2) 12/23/17 12:20 ESR 38 mm/hr (0-30) H 12/24/17 07:30 PT 21.7 Seconds (9.8-13.1) H 12/26/17 04:35 INR 1.9 (0.9-1.2) H 12/26/17 04:35 APTT 37.2 Seconds (25.6-37.1) H 12/23/17 12:20 Sodium 141 mmol/l (132-148) 12/23/17 12:20 Potassium 4.9 MMOL/L (3.6-5.0) 12/23/17 12:20 Chloride 104 mmol/L (98-107) 12/23/17 12:20 Carbon Dioxide 23 mmol/L (22-30) 12/23/17 12:20 Anion Gap 19 (10-20) 12/23/17 12:20 BUN 37 mg/dl (7-17) H 12/23/17 12:20 Creatinine 1.2 mg/dl (0.7-1.2) 12/23/17 12:20 Est GFR ( Amer) 52 12/23/17 12:20 Est GFR (Non-Af Amer) 43 12/23/17 12:20 POC Glucose (mg/dL) 135 mg/dL (65-110) H 12/26/17 10:46 Random Glucose 117 mg/dL (65-105) H 12/23/17 12:20 Hemoglobin A1c 5.9 % (4.2-6.5) 12/24/17 07:30 Calcium 10.1 mg/dL (8.4-10.2) 12/23/17 12:20 Total Bilirubin 0.6 mg/dl (0.2-1.3) 12/23/17 12:20 AST 33 U/L (14-36) 12/23/17 12:20 ALT 24 U/L (9-52) 12/23/17 12:20 Alkaline Phosphatase 47 U/L (38-126) 12/23/17 12:20 Troponin I < 0.0120 ng/mL (0.00-0.120) 12/23/17 12:20 C-Reactive Protein 7.00 mg/L (0.0-9.9) 12/24/17 07:30 Total Protein 7.6 G/DL (6.3-8.2) 12/23/17 12:20 Albumin 3.9 g/dL (3.5-5.0) 12/23/17 12:20 Globulin 3.7 gm/dL (2.2-3.9) 12/23/17 12:20 Albumin/Globulin Ratio 1.0 (1.0-2.1) 12/23/17 12:20 Angiotensin Convert Enz 10 U/L (9-67) 12/24/17 07:30 Vitamin B12 374 pg/mL (239-931) 12/23/17 19:22 Folate 8.4 ng/mL 12/23/17 19:22 TSH 3rd Generation 2.18 mIU/ML (0.46-4.68) 12/24/17 07:30 Urine Color Yellow (YELLOW) 12/23/17 14:04 Urine Clarity Slighty-cloudy (Clear) 12/23/17 14:04 Urine pH 6.0 (5.0-8.0) 12/23/17 14:04 Ur Specific Panther Burn 1.015 (1.003-1.030) 12/23/17 14:04 Urine Protein Negative mg/dL (NEGATIVE) 12/23/17 14:04 Urine Glucose (UA) Neg mg/dL (Normal) 12/23/17 14:04 Urine Ketones Negative mg/dL (NEGATIVE) 12/23/17 14:04 Urine Blood Small (NEGATIVE) 12/23/17 14:04 Urine Nitrate Negative (NEGATIVE) 12/23/17 14:04 Urine Bilirubin Negative (NEGATIVE) 12/23/17 14:04 Urine Urobilinogen 0.2-1.0 mg/dL (0.2-1.0) 12/23/17 14:04 Ur Leukocyte Esterase Neg Rafael/uL (Negative) 12/23/17 14:04 Urine RBC (Auto) 2 /hpf (0-3) 12/23/17 14:04 Urine Microscopic WBC 1 /hpf (0-5) 12/23/17 14:04 Ur Squamous Epith Cells 1 /hpf (0-5) 12/23/17 14:04 Urine Bacteria Rare (<OCC) 12/23/17 14:04 Serum Immunofixation Detected (Not Detected) H 12/24/17 07:30 RPR Nonreactive (NONREACTIVE) 12/23/17 19:22 - Hospital Course Hospital Course: Consultations: Neurology, Cardiology Hospital Course: Pt is an 82 y/o female who came to ED with complaints of unsteady gait and lightheadedness upon standing. Stroke workup was negative. She was evaluated by neurology and had Brain MRI, Carotid U/S completed. 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 Neurologist also recommended Acute Rehab for pt's gait instability. Pt also had echo done that showed severe aortic stenosis. Cardiology evaluated pt and recommended cath to further evaluate valvular disease. Pt stated she would consider it. Cleared from cardiology for discharge to TCU. Discharge medications: Pt's coumadin home dose increased to 6mg daily. No other medication changes to home meds. Discharge Exam - Head Exam Head Exam: NORMAL INSPECTION - Eye Exam Eye Exam: Normal appearance - ENT Exam ENT Exam: Mucous Membranes Moist - Respiratory Exam Respiratory Exam: Clear to PA & Lateral. absent: Rales, Wheezes - Cardiovascular Exam Cardiovascular Exam: REGULAR RHYTHM, +S1, +S2, Systolic Murmur - GI/Abdominal Exam GI & Abdominal Exam: Normal Bowel Sounds - Neurological Exam Neurological exam: Alert, Oriented x3 - Psychiatric Exam Psychiatric exam: Normal Affect - Skin Skin Exam: Normal Color Discharge Plan - Follow Up Plan Condition: STABLE Disposition: REHAB FACILITY/REHAB UNIT Referrals: Zhen Toribio MD [Medical Doctor] - Gino Mcpherson MD [Staff Provider] -
--- NOTE | 2017-12-26 12:18 | CP.PCM.CON ---
History of Present Illness - History of Present Illness History of Present Illness: THE PATIENT IS AN 82 YEAR OLD FEMALE WHO HAS A HISTORY OF AN OLD CVA, CHRONIC ATRIAL FIBRILLATION ON WARFARIN, HYPERTENSION, HYPERLIPIDEMIA AND TYPE 2 DM. SHE WAS ADMITTED THREE DAYS AGO WITH AN UNSTEADY GAIT AND DIZZINESS AND WAS DIAGNOSED WITH VERTEBROBASILAR ISUFFICIENCY. AN ECHOCARDIOGRAM SHOWED SEVERE AORTIC STENOSIS AND CARDIOLOGY WAS CALLED TO SEE HER BEFORE SHE GOES TO REHAB. SHE FEELS BETTER NOW AND DENIES CHEST PAIN, PALPITATIONS OR SOB. Past Patient History - Past Medical History & Family History Past Medical History?: Yes - Past Social History Smoking Status: Former Smoker - CARDIAC Hx Cardiac Disorders: Yes Hx Atrial Fibrillation: Yes Hx Cardia Arrhythmia: Yes Hx Hypercholesterolemia: Yes Hx Hypertension: Yes - PULMONARY Hx Respiratory Disorders: No - NEUROLOGICAL Hx Neurological Disorder: Yes HX Cerebrovascular Accident: Yes - HEENT Hx HEENT Problems: Yes - RENAL Hx Chronic Kidney Disease: No - ENDOCRINE/METABOLIC Hx Endocrine Disorders: Yes Hx Diabetes Mellitus Type 2: Yes - HEMATOLOGICAL/ONCOLOGICAL Hx Blood Disorders: No - INTEGUMENTARY Hx Dermatological Problems: No - MUSCULOSKELETAL/RHEUMATOLOGICAL Hx Musculoskeletal Disorders: Yes Hx Falls: No Hx Spinal Stenosis: Yes - GASTROINTESTINAL Hx Gastrointestinal Disorders: No - GENITOURINARY/GYNECOLOGICAL Hx Genitourinary Disorders: No - PSYCHIATRIC Hx Psychophysiologic Disorder: No Hx Substance Use: No - SURGICAL HISTORY Hx Surgeries: Yes Hx Hysterectomy: Yes Other/Comment: thyroid nodule resection - ANESTHESIA Hx Anesthesia: Yes Hx Anesthesia Reactions: No Hx Malignant Hyperthermia: No Has any member of the family had a problem w/ anesthesia?: No Meds Home Medications: Home Medication List Medication Instructions Recorded Confirmed Type Atorvastatin [Lipitor] 20 mg PO DAILY tab 12/25/17 Rx Dextrose 50% [Dextrose 50% Inj] 0 ml IV STAT PRN syr 12/25/17 Rx Dextrose Oral [Glutose 15] 0 gm PO ONCE PRN tube 12/25/17 Rx Glucagon [Glucagen Diagnostic Kit] 0 mg IM STAT PRN vial 12/25/17 Rx Insulin Human Regular [HumuLIN R] 0 units SC ACHS ml 12/25/17 Rx SITagliptin [Januvia] 50 mg PO BID tab 12/25/17 Rx Warfarin [Coumadin] 6 mg PO QD5 tab 12/25/17 Rx metFORMIN [glucOPHAGE] 500 mg PO BID tab 12/25/17 Rx Allergies/Adverse Reactions: Allergies Allergy/AdvReac Type Severity Reaction Status Date / Time ciprofloxacin Allergy RASH Verified 12/23/17 23:45 - Medications Medications: Current Medications Amlodipine Besylate (Norvasc) 10 mg PO DAILY PENDING SALE TO [facility] Last Admin: 12/26/17 08:50 Dose: 10 mg Atorvastatin Calcium (Lipitor) 20 mg PO DAILY PENDING SALE TO [facility] Last Admin: 12/26/17 08:50 Dose: 20 mg Dextrose (Dextrose 50% Inj) 0 ml IV STAT PRN; Protocol PRN Reason: Hypoglycemia Protocol Dextrose (Glutose 15) 0 gm PO ONCE PRN; Protocol PRN Reason: Hypoglycemia Protocol Glucagon (Glucagen Diagnostic Kit) 0 mg IM STAT PRN; Protocol PRN Reason: Hypoglycemia Protocol Insulin Human Regular (Humulin R) 0 units SC ACHS RENETTA PRN Reason: Protocol Last Admin: 12/26/17 06:57 Dose: Not Given Lisinopril (Zestril) 10 mg PO QPM PENDING SALE TO [facility] Last Admin: 12/25/17 17:33 Dose: 10 mg Metformin HCl (Glucophage) 500 mg PO BID PENDING SALE TO [facility] Last Admin: 12/26/17 08:50 Dose: 500 mg Sitagliptin Phosphate (Januvia) 50 mg PO BID PENDING SALE TO [facility] Last Admin: 12/26/17 08:50 Dose: 50 mg Triamterene/HCTZ (Dyazide 25 Mg-37.5 Mg) 1 cap PO QPM PENDING SALE TO [facility] Last Admin: 12/25/17 17:34 Dose: 1 cap Physical Exam - Respiratory Exam Respiratory Exam: Clear to Auscultation Bilateral - Cardiovascular Exam Cardiovascular Exam: +S1, +S2, Systolic Murmur - Extremities Exam Additional comments: NO SIGNIFICANT LE EDEMA - Additional Findings Additional findings: EKG ATRIAL FIBRILLATION ECHOCARDIOGRAM WITH SEVERE AORTIC STENOSIS AND ALSO MS CXR NAD MRI REPORT REVIEWED NEUROLOGY NOTES REVIEWED Results - Vital Signs Recent Vital Signs: Last Vital Signs Temp 97.9 F 12/26/17 08:00 Pulse 68 12/26/17 08:00 Resp 18 12/26/17 08:00 BP 122/65 12/26/17 08:00 Pulse Ox 96 12/26/17 08:00 - Labs Result Diagrams: 12/23/17 12:20 12/23/17 12:20 Labs: Laboratory Results - last 24 hr 12/24/17 12/25/17 12/25/17 07:30 15:46 21:27 PT INR POC Glucose (mg/dL) 105 88 Angiotensin Convert Enz 10 12/26/17 12/26/17 12/26/17 04:35 06:46 10:46 PT 21.7 H INR 1.9 H POC Glucose (mg/dL) 91 135 H Angiotensin Convert Enz Assessment & Plan - Assessment and Plan (Free Text) Assessment: SEVERE AORTIC STENOSIS VERTEBROBASILAR INSUFFIENCY OLD CVA CHRONIC ATRIAL FIBRILLATION HYPERTENSION HYPERLIPIDEMIA TYPE 2 DM Plan: THE ECHOCARDIOGRAM FINDINGS WERE DISCUSSED WITH THE PATIENT AND A CARDIAC CATH WAS RECOMMENDED TO CONFIRM THE AORTIC STENOSIS, AND IF CONFIRMED AN AV REPLACEMENT SHOULD BE DONE. SHE WOULD BE A GOOD CANDIDATE FOR TAVR DUE TO HER AGE AND RISK FACTORS. SHE WANTS TO THINK IT OVER AND DISCUSS IT WITH HER FAMILY BEFORE SHE MAKES A FINAL DECISION SHE CAN GO TO REHAB AND ARRANGEMENTS FOR A CARDIAC CATH CAN BE MADE IF HER FINAL DECISION IS TO PROCEED WITH A CARDIAC CATH SHE ASKED ME TO CALL HER SON AND I WILL CONTINUE LISINOPRIL, AMLODIPNE, ATORVASTATIN AND WARFARIN PER INR I WILL BE GLAD TO FOLLOW HER IN REHAB
[2017-12-26 12:59] VITALS: BP 121/71; PULSE 78; TEMP 98; O2SAT 97
== END 2017-12-26 14:30 | DRG 69 ==
LOC: H.ER 10:35 → H.ERHOLD 15:15 → H.TEL 23:02
PROVIDERS: ADMIT Family Medicine; ATTEND Family Medicine
DX: G45.0 Vertebro-basilar artery syndrome (principal); I48.2 Chronic atrial fibrillation; I35.0 Nonrheumatic aortic (valve) stenosis; I10 Essential (primary) hypertension; E11.42 Type 2 diabetes mellitus with diabetic polyneuropathy; E78.5 Hyperlipidemia, unspecified; E78.00 Pure hypercholesterolemia, unspecified; M48.07 Spinal stenosis, lumbosacral region; I69.344 Monoplegia of lower limb following cerebral infarction affecting left non-dominant side; R26.81 Unsteadiness on feet; H91.91 Unspecified hearing loss, right ear; Z79.01 Long term (current) use of anticoagulants; Z79.84 Long term (current) use of oral hypoglycemic drugs; Z88.1 Allergy status to other antibiotic agents; Z87.891 Personal history of nicotine dependence; Z90.710 Acquired absence of both cervix and uterus

== ENCOUNTER 2017-12-26 12:36 | Inpatient (IN) | payer OTHER, BC ==
[2017-12-26] MEDS ORDERED: Dextrose 50% SYRINGE Inj (50 ml) IV PRN (14:38)
[2017-12-26] MEDS ORDERED: Glucagon Recombinant 1 mg Inj IM PRN (14:38)
[2017-12-26 15:25] VITALS: RESP 20
[2017-12-26] MEDS: hydroCHLOROthiazide-Triamterene 25 mg-37.5 mg Cap UD PO SCH (17:37)
[2017-12-26] MEDS: Insulin Regular 100 units/ml SC SCH ×2 (17:39→21:35)
[2017-12-27 06:55] LABS: PROTHROMBIN TIME 22.1 Seconds (9.8-13.1)
--- NOTE | 2017-12-27 06:59 | CP.PCM.HP ---
Addendum entered and electronically signed by Zaid Johnson MD 12/27/17 12:13: Spoke with senior sales administrator, Dr. Mcpherson. Pt will need to reduce INR prior to Cath procedure as she has been on Coumadin. Coumadin will be held, repeat INR on Saturday am. Lisinopril also held as BP were running low. Pt will continue rehabilitation in TCU. Original Note: <Zaid Johnson - Last Filed: 12/27/17 10:38> History of Present Illness - History of Present Illness History of Present Illness: 82 y/o female with hx of HTN, HLD, DM, and Afibb on Coumadin, recently admitted to [facility] for evaluation of unsteady gait likely secondary to vertibulobasilar insufficiency and/or severe aortic stenosis. Now admitted to tcu for continuing physical therapy. PMD: Dr. Randle PMHX: Afibb, HTN, HLD, DM, Spinal Stenosis, Chronic hearing loss (right), Chronic vision problems BL Surgical Hx: Hysterectomy, Thyroid Nodule resection Medications: Amlodipine 1mg, Lisinopril, Simvastatin 40mg, Sitagliptin, Tramterene/HTZ, Warfarin 5m Allergies: Ciprofloxacin (rash) Social: Lives alone, independent, Former smoker 25 ppy, Denies alcohol use Code Status: Full Present on Admission - Present on Admission Any Indicators Present on Admission: No History of DVT/PE: No History of Uncontrolled Diabetes: No Urinary Catheter: No Decubitus Ulcer Present: No Review of Systems - Constitutional Constitutional: absent: Chills, Fever - EENT Eyes: Blurred Vision Ears: Decreased Hearing - Cardiovascular Cardiovascular: absent: Chest Pain, Chest Pain at Rest, Dyspnea, Dyspnea on Exertion, Orthopnea - Respiratory Respiratory: absent: Cough, Dyspnea - Gastrointestinal Gastrointestinal: absent: Bloating, Cramping - Neurological Neurological: Abnormal Hearing Past Patient History - Past Medical History & Family History Past Medical History?: Yes - Past Social History Smoking Status: Never Smoked - CARDIAC Hx Cardiac Disorders: Yes Hx Atrial Fibrillation: Yes Hx Cardia Arrhythmia: Yes Hx Hypercholesterolemia: Yes Hx Hypertension: Yes - PULMONARY Hx Respiratory Disorders: No - NEUROLOGICAL Hx Neurological Disorder: Yes HX Cerebrovascular Accident: Yes - HEENT Hx HEENT Problems: Yes - RENAL Hx Chronic Kidney Disease: No - ENDOCRINE/METABOLIC Hx Endocrine Disorders: Yes Hx Diabetes Mellitus Type 2: Yes - HEMATOLOGICAL/ONCOLOGICAL Hx Blood Disorders: No Hx AIDS: No Hx Human Immunodeficiency Virus (HIV): No - INTEGUMENTARY Hx Dermatological Problems: No - MUSCULOSKELETAL/RHEUMATOLOGICAL Hx Falls: Yes - GASTROINTESTINAL Hx Gastrointestinal Disorders: No - GENITOURINARY/GYNECOLOGICAL Hx Genitourinary Disorders: No - PSYCHIATRIC Hx Substance Use: No - SURGICAL HISTORY Hx Surgeries: Yes Hx Hysterectomy: Yes Other/Comment: thyroid nodule resection - ANESTHESIA Hx Anesthesia: Yes Hx Anesthesia Reactions: No Hx Malignant Hyperthermia: No Meds Allergies/Adverse Reactions: Allergies Allergy/AdvReac Type Severity Reaction Status Date / Time ciprofloxacin Allergy RASH Verified 12/23/17 23:45 Physical Exam - Constitutional Appears: Well, Non-toxic, No Acute Distress - Head Exam Head Exam: NORMAL INSPECTION - Eye Exam Eye Exam: Normal appearance - ENT Exam ENT Exam: Mucous Membranes Moist - Respiratory Exam Respiratory Exam: Clear to Auscultation Bilateral. absent: Rales, Wheezes - Cardiovascular Exam Cardiovascular Exam: REGULAR RHYTHM, +S1, +S2, Systolic Murmur - GI/Abdominal Exam GI & Abdominal Exam: Normal Bowel Sounds, Soft. absent: Distended, Tenderness - Extremities Exam Extremities exam: Negative for: pedal edema - Neurological Exam Neurological exam: Alert, Oriented x3 - Psychiatric Exam Psychiatric exam: Normal Affect - Skin Skin Exam: Normal Color Results - Vital Signs Recent Vital Signs: Last Vital Signs Temp 97.7 F 12/26/17 19:42 Pulse 78 12/26/17 19:42 Resp 20 12/26/17 19:42 BP 107/52 L 12/26/17 19:42 Pulse Ox 98 12/26/17 19:42 - Labs Labs: Laboratory Results - last 24 hr 12/26/17 12/26/17 12/27/17 17:38 21:13 06:06 PT 22.1 H INR 2.0 H POC Glucose (mg/dL) 122 H 87 Assessment & Plan - Assessment and Plan (Free Text) Assessment: 82 y/o female with hx of HTN, HLD, DM, and Afibb on Coumadin, recently admitted to [facility] for evaluation of unsteady gait likely secondary to vertibulobasilar insufficiency and/or severe aortic stenosis. Now admitted to TCU for continuing physical therapy. Plan for Cath today for evaluation of Aortic Stenosis. Will be arranged by Animal Care Attendant, Dr. Mcpherson. Unsteady Gait, acute -Stroke workup negative -Evaluated by Neurology- likely 2/2 to Vertibulobasilar Insufficiency vs Aortic Stenosis -See Brain MRI, Carotid U/S reports -RPR, B12, Folate wnl -PT for continued physical therapy Aortic Stenosis, severe -Symptomatic -See echor report -May explain unsteady gait -Plan for Cath today -Cardiology on board, Dr. Mcpherson Chronic Afibb -On Coumadin 6mg daily -INR 2.0 today -F/U am INR -# Hypertension - Normotensive - Continue home meds # Diabetes Mellitus - Continue home meds - Hypoglycemia protocol and insulin coverage scale # Hyperlipidemia - Continue with home meds # Spinal Stenosis, stable - Reports right leg pain only when standing; denies pain - Sees pain management outpatient -MRI spinal and Lumbar completed -Neurologist on board # DVT ppx - Pt is taking coumadin <Cipriano Tuttle - Last Filed: 12/30/17 07:21> Results - Vital Signs Recent Vital Signs: Last Vital Signs Temp 97.0 F L 12/29/17 22:08 Pulse 81 12/29/17 22:08 Resp 20 12/29/17 22:08 BP 143/65 12/29/17 22:08 Pulse Ox 98 12/29/17 22:08 - Labs Result Diagrams: 12/30/17 05:50 12/30/17 05:50 Labs: Laboratory Results - last 24 hr 12/29/17 12/29/17 12/29/17 06:00 06:00 11:01 WBC 7.5 RBC 4.05 Hgb 12.3 Hct 36.8 MCV 90.8 MCH 30.5 MCHC 33.6 RDW 14.5 Plt Count 232 PT INR Sodium 142 Potassium 4.3 Chloride 101 Carbon Dioxide 28 Anion Gap 17 BUN 41 H Creatinine 1.4 H Est GFR ( Amer) 43 Est GFR (Non-Af Amer) 36 POC Glucose (mg/dL) 114 H Random Glucose 96 Calcium 9.6 Total Bilirubin AST ALT Alkaline Phosphatase Total Protein Albumin Globulin Albumin/Globulin Ratio 12/29/17 12/29/17 12/30/17 16:49 21:16 05:50 WBC RBC Hgb Hct MCV MCH MCHC RDW Plt Count PT 14.5 H D INR 1.3 H D Sodium Potassium Chloride Carbon Dioxide Anion Gap BUN Creatinine Est GFR ( Amer) Est GFR (Non-Af Amer) POC Glucose (mg/dL) 113 H 96 Random Glucose Calcium Total Bilirubin AST ALT Alkaline Phosphatase Total Protein Albumin Globulin Albumin/Globulin Ratio 12/30/17 12/30/17 12/30/17 05:50 05:50 06:22 WBC 7.4 RBC 3.99 Hgb 12.2 Hct 35.8 MCV 89.8 MCH 30.5 MCHC 34.0 RDW 14.7 H Plt Count 223 PT INR Sodium 142 Potassium 4.4 Chloride 100 Carbon Dioxide 30 Anion Gap 16 BUN 31 H Creatinine 1.2 Est GFR ( Amer) 52 Est GFR (Non-Af Amer) 43 POC Glucose (mg/dL) 101 Random Glucose 99 Calcium 9.4 Total Bilirubin 0.5 AST 22 ALT 30 Alkaline Phosphatase 42 Total Protein 6.8 Albumin 3.7 Globulin 3.1 Albumin/Globulin Ratio 1.2 Attending/Attestation - Attestation I have personally seen and examined this patient.: Yes I have fully participated in the care of the patient.: Yes I have reviewed all pertinent clinical information: Yes
--- NOTE | 2017-12-27 07:17 | CP.PCM.CON ---
History of Present Illness - History of Present Illness History of Present Illness: CONSULTATION DICTATED VBI / PERIPHERAL NEUROPTHY - STABLE CONTINUE THE PRESENT MANAGEMENT PT/GAIT TRAINING FALL PRECAUTION THANKS Past Patient History - Past Medical History & Family History Past Medical History?: Yes - Past Social History Smoking Status: Never Smoked - CARDIAC Hx Cardiac Disorders: Yes Hx Atrial Fibrillation: Yes Hx Cardia Arrhythmia: Yes Hx Hypercholesterolemia: Yes Hx Hypertension: Yes - PULMONARY Hx Respiratory Disorders: No - NEUROLOGICAL Hx Neurological Disorder: Yes HX Cerebrovascular Accident: Yes - HEENT Hx HEENT Problems: Yes - RENAL Hx Chronic Kidney Disease: No - ENDOCRINE/METABOLIC Hx Endocrine Disorders: Yes Hx Diabetes Mellitus Type 2: Yes - HEMATOLOGICAL/ONCOLOGICAL Hx Blood Disorders: No Hx AIDS: No Hx Human Immunodeficiency Virus (HIV): No - INTEGUMENTARY Hx Dermatological Problems: No - MUSCULOSKELETAL/RHEUMATOLOGICAL Hx Falls: Yes - GASTROINTESTINAL Hx Gastrointestinal Disorders: No - GENITOURINARY/GYNECOLOGICAL Hx Genitourinary Disorders: No - PSYCHIATRIC Hx Substance Use: No - SURGICAL HISTORY Hx Surgeries: Yes Hx Hysterectomy: Yes Other/Comment: thyroid nodule resection - ANESTHESIA Hx Anesthesia: Yes Hx Anesthesia Reactions: No Hx Malignant Hyperthermia: No Meds Allergies/Adverse Reactions: Allergies Allergy/AdvReac Type Severity Reaction Status Date / Time ciprofloxacin Allergy RASH Verified 12/23/17 23:45 - Medications Medications: Current Medications Amlodipine Besylate (Norvasc) 10 mg PO DAILY [facility] Atorvastatin Calcium (Lipitor) 20 mg PO HS [facility] Dextrose (Dextrose 50% Inj) 0 ml IV STAT PRN; Protocol PRN Reason: Hypoglycemia Protocol Dextrose (Glutose 15) 0 gm PO ONCE PRN; Protocol PRN Reason: Hypoglycemia Protocol Glucagon (Glucagen Diagnostic Kit) 0 mg IM STAT PRN; Protocol PRN Reason: Hypoglycemia Protocol Insulin Human Regular (Humulin R) 0 units SC ACHS [facility] PRN Reason: Protocol Last Admin: 12/26/17 21:35 Dose: Not Given Lisinopril (Zestril) 10 mg PO QPM [facility] Last Admin: 12/26/17 17:37 Dose: 10 mg Metformin HCl (Glucophage) 500 mg PO BID [facility] Last Admin: 12/26/17 17:37 Dose: 500 mg Sitagliptin Phosphate (Januvia) 50 mg PO BID [facility] Last Admin: 12/26/17 17:37 Dose: 50 mg Triamterene/HCTZ (Dyazide 25 Mg-37.5 Mg) 1 cap PO QPM [facility] Last Admin: 12/26/17 17:37 Dose: 1 cap Results - Vital Signs Recent Vital Signs: Last Vital Signs Temp 97.7 F 12/26/17 19:42 Pulse 78 12/26/17 19:42 Resp 20 12/26/17 19:42 BP 107/52 L 12/26/17 19:42 Pulse Ox 98 12/26/17 19:42 - Labs Labs: Laboratory Results - last 24 hr 12/26/17 12/26/17 12/27/17 17:38 21:13 06:06 PT 22.1 H INR 2.0 H POC Glucose (mg/dL) 122 H 87
[2017-12-27] MEDS: Insulin Regular 100 units/ml SC SCH ×4 (08:35→21:30)
--- NOTE | 2017-12-27 10:18 | PN ---
DATE: 12/27/2017 TIME OF EVALUATION: 06:30 a.m. NEUROLOGICAL PROBLEM: Vertigo, possible vertebrobasilar insufficiency. PHYSICAL EXAMINATION: VITAL SIGNS: Blood pressure 107/52, mean arterial pressure of 70, respiratory rate 18, temperature 97.7, pulse rate is 78 and regular. NEUROLOGIC: On examination, visual field intact. Pupils reactive to light. Extraocular movement normal. No facial asymmetry. The muscle strength is equal on both sides. Sensory examination, significant, bilaterally there is a symmetric sensory and motor neuropathy noted. [id number] test is intact. Gait is deferred at this time. The patient did have workup for her vertebrobasilar insufficiency while she as on the floor. At present, the patient is stable. No new episodes. She feels comfortable as well as her subjective symptoms have been resolved after . CONCLUSION: The patient is presenting with vertebrobasilar insufficiency, superimposed with a peripheral neuropathy. Symptoms were probably related to small vessel disease versus cardiac cause. I agreed with her, after medical stabilization, the patient should need a cardiac catheterization which can be done at [place] as per the patient. Continue the present management. No further workup is needed from Neurology. Zhen Toribio MD
--- NOTE | 2017-12-27 11:54 | CP.PCM.CON ---
History of Present Illness - History of Present Illness History of Present Illness: THE PATIENT IS AN 82 YEAR OLD FEMALE WHO WAS DISCHARGED TO TCU YESTERDAY AND CARDIOLOGY WAS ASKED TO FOLLOW. SHE WAS ADMITTED TO ON 12/23/17 AND AORTIC STENOSIS. YESTERDAY SHE WAS TOLD OF THE SEVERE AORTIC STENOSIS THAT WAS FOUND ON THE ECHOCARDIOGRAM AND SHE WAN'T TO THINK IT OVER AND DISCUSS IT WITH HER FAMILY SO SHE WAS ALLOWED TO GO TO TCU AND MAKE HER DECISION FROM THERE. SHE ALSO HAS A HISTORY OF CHRONIC ATRIAL FIBRILLATION, HYPERTENSION, HYPERLIPIDEMIA , AND OLD CVA AND TYPE 2 DM. SHE FEELS WELL TODAY AND DOESN'T COMPLAIN OF WEAKNESS, CHEST PAON, SOB OR PALPITATIONS. Past Patient History - Past Medical History & Family History Past Medical History?: Yes - Past Social History Smoking Status: Never Smoked - CARDIAC Hx Cardiac Disorders: Yes Hx Atrial Fibrillation: Yes Hx Cardia Arrhythmia: Yes Hx Hypercholesterolemia: Yes Hx Hypertension: Yes - PULMONARY Hx Respiratory Disorders: No - NEUROLOGICAL Hx Neurological Disorder: Yes HX Cerebrovascular Accident: Yes - HEENT Hx HEENT Problems: Yes - RENAL Hx Chronic Kidney Disease: No - ENDOCRINE/METABOLIC Hx Endocrine Disorders: Yes Hx Diabetes Mellitus Type 2: Yes - HEMATOLOGICAL/ONCOLOGICAL Hx Blood Disorders: No Hx AIDS: No Hx Human Immunodeficiency Virus (HIV): No - INTEGUMENTARY Hx Dermatological Problems: No - MUSCULOSKELETAL/RHEUMATOLOGICAL Hx Falls: Yes - GASTROINTESTINAL Hx Gastrointestinal Disorders: No - GENITOURINARY/GYNECOLOGICAL Hx Genitourinary Disorders: No - PSYCHIATRIC Hx Substance Use: No - SURGICAL HISTORY Hx Surgeries: Yes Hx Hysterectomy: Yes Other/Comment: thyroid nodule resection - ANESTHESIA Hx Anesthesia: Yes Hx Anesthesia Reactions: No Hx Malignant Hyperthermia: No Meds Allergies/Adverse Reactions: Allergies Allergy/AdvReac Type Severity Reaction Status Date / Time ciprofloxacin Allergy RASH Verified 12/23/17 23:45 - Medications Medications: Current Medications Amlodipine Besylate (Norvasc) 10 mg PO DAILY [facility] Last Admin: 12/27/17 09:54 Dose: Not Given Atorvastatin Calcium (Lipitor) 20 mg PO HS [facility] Last Admin: 12/27/17 09:50 Dose: Not Given Dextrose (Dextrose 50% Inj) 0 ml IV STAT PRN; Protocol PRN Reason: Hypoglycemia Protocol Dextrose (Glutose 15) 0 gm PO ONCE PRN; Protocol PRN Reason: Hypoglycemia Protocol Glucagon (Glucagen Diagnostic Kit) 0 mg IM STAT PRN; Protocol PRN Reason: Hypoglycemia Protocol Insulin Human Regular (Humulin R) 0 units SC ACHS [facility] PRN Reason: Protocol Last Admin: 12/27/17 08:35 Dose: Not Given Lisinopril (Zestril) 10 mg PO QPM [facility] Last Admin: 12/26/17 17:37 Dose: 10 mg Metformin HCl (Glucophage) 500 mg PO BID [facility] Last Admin: 12/27/17 09:44 Dose: 500 mg Sitagliptin Phosphate (Januvia) 50 mg PO BID [facility] Last Admin: 12/27/17 09:44 Dose: 50 mg Triamterene/HCTZ (Dyazide 25 Mg-37.5 Mg) 1 cap PO QPM [facility] Last Admin: 12/26/17 17:37 Dose: 1 cap Physical Exam - Respiratory Exam Respiratory Exam: Clear to Auscultation Bilateral - Cardiovascular Exam Cardiovascular Exam: Irregular Rhythm, +S1, +S2 - Extremities Exam Additional comments: NO LE EDEMA - Additional Findings Additional findings: INR 2.0 Results - Vital Signs Recent Vital Signs: Last Vital Signs Temp 97.7 F 12/27/17 09:06 Pulse 77 12/27/17 09:54 Resp 20 12/27/17 09:06 BP 98/46 L 12/27/17 09:54 Pulse Ox 100 12/27/17 09:11 - Labs Labs: Laboratory Results - last 24 hr 12/26/17 12/26/17 12/27/17 17:38 21:13 06:06 PT 22.1 H INR 2.0 H POC Glucose (mg/dL) 122 H 87 12/27/17 12/27/17 07:59 11:04 PT INR POC Glucose (mg/dL) 93 91 Assessment & Plan - Assessment and Plan (Free Text) Assessment: CHRONIC ATRIAL FIBRILLATION VERTEBROVASCULAR INSUFFICIENCY HYPERTENSION HYPERLIPIDEMIA SEVERE AORTIC STENOSIS FOUND ON ECHOCARDIOGRAM 12/25/17 Plan: THE PATIENT SPOKE TO HER FAMILY AND AGREES TO HAVE A CARDIAC CATH TO FURTHER EVALUATE HER AORTIC VALVE GRADIENT AND AREA. SHE WANTS TO GO TO [facility]. THE COUMADIN HAS TO BE STOPPED AND A REPEAT INR WILL BE DONE ON SATURDAY AND ARRANGEMENTS FOR TRANSFER TO [place] WILL BE MADE ONCE THE INR IS SUBTHERAPEUTIC. CONTINUE AMLODIPINE AND ATORVASTATIN WILL DISCONTINUE LISINOPRIL FOR NOW BLOOD PRESSURE IS LOW NORMAL AND OBSERVE HER BLOOD PRESSURE
[2017-12-27] MEDS: hydroCHLOROthiazide-Triamterene 25 mg-37.5 mg Cap UD PO SCH (17:36)
[2017-12-28] MEDS: Insulin Regular 100 units/ml SC SCH ×4 (07:08→21:18)
--- NOTE | 2017-12-28 10:10 | CP.PCM.PN ---
Subjective - Date & Time of Evaluation Date of Evaluation: 12/28/17 Time of Evaluation: 08:35 - Subjective Subjective: Pt seen and evaluated at bedside this morning; no acute events overnight. Pt states she feels ok, she is aware of the plan as per customer marketing intern. Objective - Vital Signs/Intake and Output Vital Signs (last 24 hours): Temp Pulse Resp BP Pulse Ox 97.2 F L 77 20 111/49 L 100 12/28/17 08:09 12/28/17 08:13 12/28/17 08:09 12/28/17 08:13 12/28/17 08:09 - Medications Medications: Current Medications Amlodipine Besylate (Norvasc) 10 mg PO DAILY [facility] Last Admin: 12/28/17 08:13 Dose: Not Given Atorvastatin Calcium (Lipitor) 20 mg PO HS [facility] Last Admin: 12/27/17 21:29 Dose: 20 mg Dextrose (Dextrose 50% Inj) 0 ml IV STAT PRN; Protocol PRN Reason: Hypoglycemia Protocol Dextrose (Glutose 15) 0 gm PO ONCE PRN; Protocol PRN Reason: Hypoglycemia Protocol Glucagon (Glucagen Diagnostic Kit) 0 mg IM STAT PRN; Protocol PRN Reason: Hypoglycemia Protocol Insulin Human Regular (Humulin R) 0 units SC ACHS [facility] PRN Reason: Protocol Last Admin: 12/28/17 07:08 Dose: Not Given Metformin HCl (Glucophage) 500 mg PO BID [facility] Last Admin: 12/28/17 08:06 Dose: 500 mg Sitagliptin Phosphate (Januvia) 50 mg PO BID [facility] Last Admin: 12/28/17 08:06 Dose: 50 mg Triamterene/HCTZ (Dyazide 25 Mg-37.5 Mg) 1 cap PO QPM [facility] Last Admin: 12/27/17 17:36 Dose: 1 cap - Labs Labs: PT 22.1 Seconds (9.8-13.1) H 12/27/17 06:06 INR 2.0 (0.9-1.2) H 12/27/17 06:06 Assessment and Plan - Assessment and Plan (Free Text) Assessment: 82 yo F with PMH of HTN, HLD, DM, and Afib (at home on coumadin), admitted to TCU for continued physical therapy after recent admission for gait instability secondary to vertibulobasilar insufficiency and/or severe aortic stenosis. Plan: # Unsteady Gait - Stroke workup negative (brain MRI, carotid u/s), evaluated by Neurology- likely secondary to vertibulobasilar insufficiency vs aortic stenosis - RPR, B12, Folate wnl - Continue physical therapy # Aortic Stenosis, severe - Symptomatic, may be responsible for unsteady gait - Seen on echo on 12/25 - Cardiology consult Dr. Mcpherson, plan for cath after anticoagulation reversed # Atrial fibrillation - Home dose is 6 mg coumadin daily, - Coumadin held yesterday (saturday) today (saturday), will be held tomorrow ( saturday), as per cardio - Check INR saturday for potential cath # Hypertension - Controlled, running low - Holding lisinopril, monitor BP # Diabetes Mellitus - Continue home meds - Hypoglycemia protocol and insulin coverage scale # Hyperlipidemia - Continue with home meds # Spinal Stenosis - Reports right leg pain only when standing; denies pain - Sees pain management outpatient - MRI spinal and Lumbar completed - Neurologist on board - continue PT # DVT ppx - spoke to Dr. Mcpherson regarding prophylaxis, coumadin held - ambulation, physical therapy - SCD
--- NOTE | 2017-12-28 13:47 | CP.PCM.PN ---
Subjective - Date & Time of Evaluation Date of Evaluation: 12/28/17 Time of Evaluation: 13:00 - Subjective Subjective: NO CHEST PAIN OR SOB Objective - Vital Signs/Intake and Output Vital Signs (last 24 hours): Temp Pulse Resp BP Pulse Ox 97.2 F L 77 20 111/49 L 100 12/28/17 08:09 12/28/17 08:13 12/28/17 08:09 12/28/17 08:13 12/28/17 08:09 - Medications Medications: Current Medications Amlodipine Besylate (Norvasc) 10 mg PO DAILY [facility] Last Admin: 12/28/17 08:13 Dose: Not Given Aspirin (Aspirin Chewable) 81 mg PO DAILY [facility] Atorvastatin Calcium (Lipitor) 20 mg PO HS [facility] Last Admin: 12/27/17 21:29 Dose: 20 mg Dextrose (Dextrose 50% Inj) 0 ml IV STAT PRN; Protocol PRN Reason: Hypoglycemia Protocol Dextrose (Glutose 15) 0 gm PO ONCE PRN; Protocol PRN Reason: Hypoglycemia Protocol Glucagon (Glucagen Diagnostic Kit) 0 mg IM STAT PRN; Protocol PRN Reason: Hypoglycemia Protocol Insulin Human Regular (Humulin R) 0 units SC ACHS [facility] PRN Reason: Protocol Last Admin: 12/28/17 12:15 Dose: 1 unit Metformin HCl (Glucophage) 500 mg PO BID [facility] Last Admin: 12/28/17 08:06 Dose: 500 mg Sitagliptin Phosphate (Januvia) 50 mg PO BID [facility] Last Admin: 12/28/17 08:06 Dose: 50 mg Triamterene/HCTZ (Dyazide 25 Mg-37.5 Mg) 1 cap PO QPM [facility] Last Admin: 12/27/17 17:36 Dose: 1 cap - Labs Labs: PT 22.1 Seconds (9.8-13.1) H 12/27/17 06:06 INR 2.0 (0.9-1.2) H 12/27/17 06:06 - Respiratory Exam Respiratory Exam: Clear to Ausculation Bilateral - Cardiovascular Exam Cardiovascular Exam: Irregular Rhythm, +S1, +S2 - Extremities Exam Additional comments: NO LE EDEMA SOMMER'S SIGN NEGATIVE BILAT Assessment and Plan - Assessment and Plan (Free Text) Assessment: SEVERE AORTIC STENOSIS HYPERTENSION HYPERLIPIDEMIA TYPE 2 DM OLD CVA Plan: CONTINUE AMLODIPINE, JANUVIA, ASPIRIN AND ATORVASTATIN CONTINUE TO HOLD COUMADIN PRIOR TO CARDIAC CATH [facility] ALSO ON HOLD PRIOR TO CARDIAC CATH INR ON SATURDAY AND FOR CARDIAC CATH AT [facility] ONCE THE INR LEVEL IS NORMAL
[2017-12-28] MEDS: hydroCHLOROthiazide-Triamterene 25 mg-37.5 mg Cap UD PO SCH (17:02)
[2017-12-29 07:43] LABS: HEMOGLOBIN 12.3 g/dL (12.0-16.0); MEAN CELL VOLUME 90.8 fl (81.0-99.0); MEAN CORPUSCULAR HEMOGLOBIN 30.5 pg (27.0-31.0); MEAN CORPUSCULAR HGB CONC 33.6 g/dL (33.0-37.0); RBC 4.05 Mil/uL (3.80-5.20); RED CELL DISTRIBUTION WIDTH 14.5 % (11.5-14.5); WHITE BLOOD COUNT 7.5 K/uL (4.8-10.8)
[2017-12-29] MEDS: Insulin Regular 100 units/ml SC SCH ×4 (07:57→22:04)
[2017-12-29 07:59] LABS: CALCIUM 9.6 mg/dL (8.4-10.2)
[2017-12-29] MEDS: hydroCHLOROthiazide-Triamterene 25 mg-37.5 mg Cap UD PO SCH (17:35)
--- NOTE | 2017-12-29 21:06 | CP.PCM.PN ---
Subjective - Date & Time of Evaluation Date of Evaluation: 12/29/17 Time of Evaluation: 12:30 - Subjective Subjective: Patient seen and examined at bedside in no acute distress. Reports good appetite , normal urine output. Denies chest pain, palpitations, weakness or dizziness. Objective - Vital Signs/Intake and Output Vital Signs (last 24 hours): Temp Pulse Resp BP Pulse Ox 98.1 F 80 20 132/55 L 100 12/29/17 17:29 12/29/17 17:29 12/29/17 17:29 12/29/17 17:29 12/29/17 17:29 - Medications Medications: Current Medications Amlodipine Besylate (Norvasc) 5 mg PO DAILY [facility] Last Admin: 12/29/17 09:16 Dose: 5 mg Aspirin (Aspirin Chewable) 81 mg PO DAILY [facility] Last Admin: 12/29/17 09:16 Dose: 81 mg Atorvastatin Calcium (Lipitor) 20 mg PO HS [facility] Last Admin: 12/28/17 21:19 Dose: 20 mg Dextrose (Dextrose 50% Inj) 0 ml IV STAT PRN; Protocol PRN Reason: Hypoglycemia Protocol Dextrose (Glutose 15) 0 gm PO ONCE PRN; Protocol PRN Reason: Hypoglycemia Protocol Glucagon (Glucagen Diagnostic Kit) 0 mg IM STAT PRN; Protocol PRN Reason: Hypoglycemia Protocol Insulin Human Regular (Humulin R) 0 units SC ACHS [facility] PRN Reason: Protocol Last Admin: 12/29/17 17:34 Dose: Not Given Metformin HCl (Glucophage) 500 mg PO BID [facility] Last Admin: 12/28/17 08:06 Dose: 500 mg Sitagliptin Phosphate (Januvia) 50 mg PO BID [facility] Last Admin: 12/29/17 17:35 Dose: 50 mg Triamterene/HCTZ (Dyazide 25 Mg-37.5 Mg) 1 cap PO QPM [facility] Last Admin: 12/29/17 17:35 Dose: 1 cap - Labs Labs: 12/29/17 06:00 12/29/17 06:00 PT 22.1 Seconds (9.8-13.1) H 12/27/17 06:06 INR 2.0 (0.9-1.2) H 12/27/17 06:06 - Constitutional Appears: Non-toxic, No Acute Distress - Head Exam Head Exam: ATRAUMATIC, NORMOCEPHALIC - Eye Exam Eye Exam: EOMI, PERRL - ENT Exam ENT Exam: Mucous Membranes Moist - Neck Exam Neck Exam: Full ROM - Respiratory Exam Respiratory Exam: Clear to Ausculation Bilateral, NORMAL BREATHING PATTERN - Cardiovascular Exam Cardiovascular Exam: REGULAR RHYTHM, +S1, +S2 - GI/Abdominal Exam GI & Abdominal Exam: Soft (obese), Normal Bowel Sounds. absent: Tenderness - Extremities Exam Extremities Exam: Full ROM. absent: Pedal Edema - Back Exam Back Exam: Full ROM - Neurological Exam Neurological Exam: Alert, Awake, CN II-XII Intact, Oriented x3 - Psychiatric Exam Psychiatric exam: Normal Affect, Normal Mood - Skin Skin Exam: Dry, Intact, Warm Assessment and Plan - Assessment and Plan (Free Text) Assessment: 82 yo F with PMH of HTN, HLD, DM, and Afib (at home on coumadin), admitted to TCU for continued physical therapy after recent admission for gait instability secondary to vertibulobasilar insufficiency and/or severe aortic stenosis. Plan: 1. Unsteady Gait - Stroke workup negative (brain MRI, carotid u/s), evaluated by Neurology- likely secondary to vertibulobasilar insufficiency vs aortic stenosis - RPR, B12, Folate wnl - Continue physical therapy 2. Aortic Stenosis, severe - Symptomatic, may be responsible for unsteady gait - Seen on echo on 12/25 - Cardiology consult Dr. Mcpherson, plan for cath tomorrow pending INR value 3. Atrial fibrillation - Home dose is 6 mg coumadin daily, - Coumadin held as per cardio - Check INR tomorrow AM for potential cath 4. Hypertension - Controlled - Norvasc 5mg PO QD, monitor BP 5. Diabetes Mellitus - Continue home meds - Hypoglycemia protocol and insulin coverage scale 6. Hyperlipidemia - Continue with home meds 7. Spinal Stenosis - Reports right leg pain only when standing; denies pain - Sees pain management outpatient - MRI spinal and Lumbar completed - Neurologist on board - continue PT 8. DVT ppx - spoke to Dr. Mcpherson regarding prophylaxis, coumadin held - ambulation, physical therapy - SCD
[2017-12-30 06:15] LABS: HEMOGLOBIN 12.2 g/dL (12.0-16.0); MEAN CELL VOLUME 89.8 fl (81.0-99.0); MEAN CORPUSCULAR HEMOGLOBIN 30.5 pg (27.0-31.0); RBC 3.99 Mil/uL (3.80-5.20); RED CELL DISTRIBUTION WIDTH 14.7 % (11.5-14.5); WHITE BLOOD COUNT 7.4 K/uL (4.8-10.8)
[2017-12-30 06:26] LABS: INR 1.3 (0.9-1.2); PROTHROMBIN TIME 14.5 Seconds (9.8-13.1)
[2017-12-30 06:28] LABS: ALB/GLOB RATIO 1.2 (1.0-2.1); ALBUMIN 3.7 g/dL (3.5-5.0); CALCIUM 9.4 mg/dL (8.4-10.2)
[2017-12-30] MEDS: Insulin Regular 100 units/ml SC SCH ×4 (07:25→21:26)
--- NOTE | 2017-12-30 09:04 | CP.PCM.PN ---
<Shan Garcia - Last Filed: 12/30/17 12:21> Subjective - Date & Time of Evaluation Date of Evaluation: 12/30/17 Time of Evaluation: 07:20 - Subjective Subjective: Giselle was seen and examined at bedside this am. Denies significant overnight events. Denies CP/SOB/N/V. Objective - Vital Signs/Intake and Output Vital Signs (last 24 hours): Temp Pulse Resp BP Pulse Ox 97.5 F L 68 20 129/58 L 100 12/30/17 08:37 12/30/17 08:37 12/30/17 08:37 12/30/17 08:37 12/30/17 08:37 - Medications Medications: Current Medications Amlodipine Besylate (Norvasc) 5 mg PO DAILY [facility] Last Admin: 12/29/17 09:16 Dose: 5 mg Aspirin (Aspirin Chewable) 81 mg PO DAILY [facility] Last Admin: 12/29/17 09:16 Dose: 81 mg Atorvastatin Calcium (Lipitor) 20 mg PO HS [facility] Last Admin: 12/29/17 22:03 Dose: 20 mg Dextrose (Dextrose 50% Inj) 0 ml IV STAT PRN; Protocol PRN Reason: Hypoglycemia Protocol Dextrose (Glutose 15) 0 gm PO ONCE PRN; Protocol PRN Reason: Hypoglycemia Protocol Glucagon (Glucagen Diagnostic Kit) 0 mg IM STAT PRN; Protocol PRN Reason: Hypoglycemia Protocol Insulin Human Regular (Humulin R) 0 units SC ACHS [facility] PRN Reason: Protocol Last Admin: 12/30/17 07:25 Dose: Not Given Metformin HCl (Glucophage) 500 mg PO BID [facility] Last Admin: 12/28/17 08:06 Dose: 500 mg Sitagliptin Phosphate (Januvia) 50 mg PO BID [facility] Last Admin: 12/29/17 17:35 Dose: 50 mg Triamterene/HCTZ (Dyazide 25 Mg-37.5 Mg) 1 cap PO QPM [facility] Last Admin: 12/29/17 17:35 Dose: 1 cap - Labs Labs: 12/30/17 05:50 12/30/17 05:50 PT 14.5 Seconds (9.8-13.1) H D 12/30/17 05:50 INR 1.3 (0.9-1.2) H D 12/30/17 05:50 - Constitutional Appears: Well, No Acute Distress - Head Exam Head Exam: ATRAUMATIC - Eye Exam Eye Exam: EOMI - Neck Exam Neck Exam: Full ROM - Respiratory Exam Respiratory Exam: Clear to Ausculation Bilateral, NORMAL BREATHING PATTERN. absent: Wheezes - Cardiovascular Exam Cardiovascular Exam: REGULAR RHYTHM, Murmur (Systolic 2/2 Aortic stenosis) - GI/Abdominal Exam GI & Abdominal Exam: Soft, Normal Bowel Sounds. absent: Tenderness - Extremities Exam Extremities Exam: absent: Calf Tenderness - Neurological Exam Neurological Exam: Alert, Awake, CN II-XII Intact, Oriented x3 - Psychiatric Exam Psychiatric exam: Normal Affect, Normal Mood Assessment and Plan - Assessment and Plan (Free Text) Plan: 82 yo F with PMH of HTN, HLD, DM, and Afib (at home on coumadin), admitted to TCU for continued physical therapy after recent admission for gait instability secondary to vertibulobasilar insufficiency and/or severe aortic stenosis. 1. Unsteady Gait - Stroke workup negative (brain MRI, carotid u/s), evaluated by Neurology- likely secondary to vertibulobasilar insufficiency vs aortic stenosis - RPR, B12, Folate wnl - Continue physical therapy 2. Aortic Stenosis, severe - Symptomatic, may be responsible for unsteady gait - Seen on echo on 12/25 - Cardiology consult Dr. Mcpherson, plan for cath tomorrow 12/31/2017 at [facility]; spoke to Dr. Dasilva; NPO at midnight, continue to hold warfarin 3. Atrial fibrillation - Home dose is 6 mg coumadin daily - Coumadin held as per cardio - INR 12/30/2017: 1.3 4. Hypertension - Controlled - Norvasc 5mg PO QD, monitor BP 5. Diabetes Mellitus - Continue home meds - Hypoglycemia protocol and insulin coverage scale 6. Hyperlipidemia - Continue with home meds 7. Spinal Stenosis - Reports right leg pain only when standing; denies pain - Sees pain management outpatient - MRI spinal and Lumbar completed - Neurologist on board - continue PT 8. DVT ppx - spoke to Dr. Mcpherson regarding prophylaxis, coumadin held - ambulation, physical therapy - SCD <Cipriano Tuttle - Last Filed: 12/31/17 06:49> Objective - Vital Signs/Intake and Output Vital Signs (last 24 hours): Temp Pulse Resp BP Pulse Ox 97.7 F 79 20 132/64 100 04/02/18 20:05 12/30/17 20:05 12/30/17 20:05 12/30/17 20:05 12/30/17 20:05 - Medications Medications: Current Medications Amlodipine Besylate (Norvasc) 5 mg PO DAILY [facility] Last Admin: 12/30/17 09:24 Dose: 5 mg Aspirin (Aspirin Chewable) 81 mg PO DAILY [facility] Atorvastatin Calcium (Lipitor) 20 mg PO HS [facility] Last Admin: 12/30/17 21:26 Dose: 20 mg Dextrose (Dextrose 50% Inj) 0 ml IV STAT PRN; Protocol PRN Reason: Hypoglycemia Protocol Dextrose (Glutose 15) 0 gm PO ONCE PRN; Protocol PRN Reason: Hypoglycemia Protocol Glucagon (Glucagen Diagnostic Kit) 0 mg IM STAT PRN; Protocol PRN Reason: Hypoglycemia Protocol Insulin Human Regular (Humulin R) 0 units SC ACHS [facility] PRN Reason: Protocol Last Admin: 12/31/17 06:34 Dose: Not Given Metformin HCl (Glucophage) 500 mg PO BID [facility] Last Admin: 12/28/17 08:06 Dose: 500 mg Sitagliptin Phosphate (Januvia) 50 mg PO BID [facility] Last Admin: 12/30/17 17:30 Dose: 50 mg Triamterene/HCTZ (Dyazide 25 Mg-37.5 Mg) 1 cap PO QPM [facility] Last Admin: 12/30/17 17:30 Dose: 1 cap - Labs Labs: 12/31/17 05:45 12/31/17 05:45 PT 14.5 Seconds (9.8-13.1) H D 12/30/17 05:50 INR 1.3 (0.9-1.2) H D 12/30/17 05:50 Attending/Attestation - Attestation I have personally seen and examined this patient.: Yes I have fully participated in the care of the patient.: Yes I have reviewed all pertinent clinical information, including history, physical exam and plan: Yes
--- NOTE | 2017-12-30 09:17 | CP.PCM.PN ---
Subjective - Date & Time of Evaluation Date of Evaluation: 12/30/17 Time of Evaluation: 09:00 - Subjective Subjective: NO COMPLAINTS THIS MORNING Objective - Vital Signs/Intake and Output Vital Signs (last 24 hours): Temp Pulse Resp BP Pulse Ox 97.5 F L 68 20 129/58 L 100 12/30/17 08:37 12/30/17 08:37 12/30/17 08:37 12/30/17 08:37 12/30/17 08:37 - Medications Medications: Current Medications Amlodipine Besylate (Norvasc) 5 mg PO DAILY [facility] Last Admin: 12/29/17 09:16 Dose: 5 mg Aspirin (Aspirin Chewable) 81 mg PO DAILY [facility] Last Admin: 12/29/17 09:16 Dose: 81 mg Atorvastatin Calcium (Lipitor) 20 mg PO HS [facility] Last Admin: 12/29/17 22:03 Dose: 20 mg Dextrose (Dextrose 50% Inj) 0 ml IV STAT PRN; Protocol PRN Reason: Hypoglycemia Protocol Dextrose (Glutose 15) 0 gm PO ONCE PRN; Protocol PRN Reason: Hypoglycemia Protocol Glucagon (Glucagen Diagnostic Kit) 0 mg IM STAT PRN; Protocol PRN Reason: Hypoglycemia Protocol Insulin Human Regular (Humulin R) 0 units SC ACHS [facility] PRN Reason: Protocol Last Admin: 12/30/17 07:25 Dose: Not Given Metformin HCl (Glucophage) 500 mg PO BID [facility] Last Admin: 12/28/17 08:06 Dose: 500 mg Sitagliptin Phosphate (Januvia) 50 mg PO BID [facility] Last Admin: 12/29/17 17:35 Dose: 50 mg Triamterene/HCTZ (Dyazide 25 Mg-37.5 Mg) 1 cap PO QPM [facility] Last Admin: 12/29/17 17:35 Dose: 1 cap - Labs Labs: 12/30/17 05:50 12/30/17 05:50 PT 14.5 Seconds (9.8-13.1) H D 12/30/17 05:50 INR 1.3 (0.9-1.2) H D 12/30/17 05:50 - Respiratory Exam Respiratory Exam: Clear to Ausculation Bilateral - Cardiovascular Exam Cardiovascular Exam: Irregular Rhythm, +S1, +S2 - Extremities Exam Extremities Exam: Normal Inspection - Additional Findings Additional findings: INR 1.3 TODAY Assessment and Plan - Assessment and Plan (Free Text) Assessment: SEVERE AND ~ MODERATE MS CHRONIC ATRIAL FIBRILLATION OLD CVA HYPERTENSION HYPERLIPIDEMIA TYPE 2 DM Plan: I SPOKE TO DR HOOVER AND THE PATIENT WILL BE TRANSFERRED TOMORROW FOR A CARDIAC CATH TOMORROW THE PATIENT CAN EAT TODAY AND WILL BE NPO AFTER MIDNIGHT CONTINUE TO HOLD WARFARIN
[2017-12-30] MEDS: hydroCHLOROthiazide-Triamterene 25 mg-37.5 mg Cap UD PO SCH (17:30)
[2017-12-31 06:28] LABS: HEMOGLOBIN 12.2 g/dL (12.0-16.0); MEAN CELL VOLUME 90.2 fl (81.0-99.0); MEAN CORPUSCULAR HEMOGLOBIN 30.3 pg (27.0-31.0); MEAN CORPUSCULAR HGB CONC 33.6 g/dL (33.0-37.0); RBC 4.02 Mil/uL (3.80-5.20); RED CELL DISTRIBUTION WIDTH 14.6 % (11.5-14.5); WHITE BLOOD COUNT 8.1 K/uL (4.8-10.8)
[2017-12-31] MEDS: Insulin Regular 100 units/ml SC SCH ×4 (06:34→21:33)
[2017-12-31 06:40] LABS: CALCIUM 9.3 mg/dL (8.4-10.2)
[2017-12-31 06:54] LABS: INR 1.1 (0.9-1.2); PARTIAL THROMBOPLASTIN TIME 30.2 Seconds (25.6-37.1); PROTHROMBIN TIME 12.3 Seconds (9.8-13.1)
--- NOTE | 2017-12-31 09:07 | CP.PCM.PN ---
<Shan Garcia - Last Filed: 12/31/17 10:50> Subjective - Date & Time of Evaluation Date of Evaluation: 12/31/17 Time of Evaluation: 07:15 - Subjective Subjective: Giselle was seen and examined at bedside this AM. Denies significant overnight events. Pt reports ambulating. Tolerating PO diet. Denies cp/sob/n/v. Awaiting cardiac cath at [facility] due to recent rescheduling. Objective - Vital Signs/Intake and Output Vital Signs (last 24 hours): Temp Pulse Resp BP Pulse Ox 97.7 F 78 20 135/62 100 12/30/17 20:05 12/31/17 08:42 12/30/17 20:05 12/31/17 08:42 12/30/17 20:05 - Medications Medications: Current Medications Amlodipine Besylate (Norvasc) 5 mg PO DAILY [facility] Last Admin: 12/31/17 08:42 Dose: 5 mg Aspirin (Aspirin Chewable) 81 mg PO DAILY [facility] Last Admin: 12/31/17 08:43 Dose: 81 mg Atorvastatin Calcium (Lipitor) 20 mg PO HS [facility] Last Admin: 12/30/17 21:26 Dose: 20 mg Dextrose (Dextrose 50% Inj) 0 ml IV STAT PRN; Protocol PRN Reason: Hypoglycemia Protocol Dextrose (Glutose 15) 0 gm PO ONCE PRN; Protocol PRN Reason: Hypoglycemia Protocol Glucagon (Glucagen Diagnostic Kit) 0 mg IM STAT PRN; Protocol PRN Reason: Hypoglycemia Protocol Insulin Human Regular (Humulin R) 0 units SC ACHS [facility] PRN Reason: Protocol Last Admin: 12/31/17 06:34 Dose: Not Given Metformin HCl (Glucophage) 500 mg PO BID [facility] Last Admin: 12/28/17 08:06 Dose: 500 mg Sitagliptin Phosphate (Januvia) 50 mg PO BID [facility] Last Admin: 12/31/17 08:42 Dose: 50 mg Triamterene/HCTZ (Dyazide 25 Mg-37.5 Mg) 1 cap PO QPM [facility] Last Admin: 12/30/17 17:30 Dose: 1 cap - Labs Labs: 12/31/17 05:45 12/31/17 05:45 PT 12.3 Seconds (9.8-13.1) 12/31/17 05:45 INR 1.1 (0.9-1.2) 12/31/17 05:45 APTT 30.2 Seconds (25.6-37.1) 12/31/17 05:45 - Constitutional Appears: Well, No Acute Distress - Eye Exam Eye Exam: EOMI - Neck Exam Neck Exam: Full ROM - Respiratory Exam Respiratory Exam: NORMAL BREATHING PATTERN. absent: Wheezes - Cardiovascular Exam Cardiovascular Exam: Irregular Rhythm, Murmur (systolic 2/2 Aortic Stenosis) - GI/Abdominal Exam GI & Abdominal Exam: Soft, Normal Bowel Sounds. absent: Tenderness - Extremities Exam Extremities Exam: Full ROM. absent: Calf Tenderness - Back Exam Back Exam: absent: CVA tenderness (L), CVA tenderness (R) - Neurological Exam Neurological Exam: Alert, Awake, CN II-XII Intact, Oriented x3 - Psychiatric Exam Psychiatric exam: Normal Affect, Normal Mood Assessment and Plan - Assessment and Plan (Free Text) Plan: 82 yo F with PMH of HTN, HLD, DM, and Afib (at home on coumadin), admitted to TCU for continued physical therapy after recent admission for gait instability secondary to vertibulobasilar insufficiency and/or severe aortic stenosis. 1. Unsteady Gait - Stroke workup negative (brain MRI, carotid u/s), evaluated by Neurology Dr. Toribio- likely secondary to vertibulobasilar insufficiency vs aortic stenosis - RPR, B12, Folate wnl - Continue physical therapy 2. Aortic Stenosis, severe - Symptomatic, may be responsible for unsteady gait - Seen on echo on 12/25 - Cardiology consult Dr. Mcpherson, plan for cath 01/02/2018 at [place] 10:00 (pt should be there at 08:00); spoke to Dr. Dasilva; NPO at midnight of 01/02/2018, continue to hold warfarin; continue with Aspirin 81; 3. Atrial fibrillation - Home dose is 6 mg coumadin daily - Coumadin held as per cardio - INR 12/30/2017: 1.3 4. Hypertension - Controlled - Norvasc 5mg PO QD, monitor BP 5. Diabetes Mellitus - Continue home meds - Hypoglycemia protocol and insulin coverage scale 6. Hyperlipidemia - Continue with home meds 7. Spinal Stenosis - Reports right leg pain only when standing; denies pain - Sees pain management outpatient - MRI spinal and Lumbar completed - Neurologist on board - continue PT 8. DVT ppx - spoke to Dr. Mcpherson regarding prophylaxis, coumadin held, continue ASA 81 - ambulation, physical therapy - SCD <Cipriano Tuttle A - Last Filed: 01/01/18 07:04> Objective - Vital Signs/Intake and Output Vital Signs (last 24 hours): Temp Pulse Resp BP Pulse Ox 97.9 F 81 20 123/61 96 12/31/17 19:50 12/31/17 19:50 12/31/17 19:50 12/31/17 19:50 12/31/17 19:50 - Medications Medications: Current Medications Amlodipine Besylate (Norvasc) 5 mg PO DAILY [facility] Last Admin: 12/31/17 08:42 Dose: 5 mg Aspirin (Aspirin Chewable) 81 mg PO DAILY [facility] Last Admin: 12/31/17 08:43 Dose: 81 mg Atorvastatin Calcium (Lipitor) 20 mg PO HS [facility] Last Admin: 12/31/17 21:33 Dose: 20 mg Dextrose (Dextrose 50% Inj) 0 ml IV STAT PRN; Protocol PRN Reason: Hypoglycemia Protocol Dextrose (Glutose 15) 0 gm PO ONCE PRN; Protocol PRN Reason: Hypoglycemia Protocol Glucagon (Glucagen Diagnostic Kit) 0 mg IM STAT PRN; Protocol PRN Reason: Hypoglycemia Protocol Insulin Human Regular (Humulin R) 0 units SC ACHS [facility] PRN Reason: Protocol Last Admin: 01/01/18 06:34 Dose: Not Given Metformin HCl (Glucophage) 500 mg PO BID [facility] Last Admin: 12/28/17 08:06 Dose: 500 mg Sitagliptin Phosphate (Januvia) 50 mg PO BID [facility] Last Admin: 12/31/17 17:21 Dose: 50 mg Triamterene/HCTZ (Dyazide 25 Mg-37.5 Mg) 1 cap PO QPM [facility] Last Admin: 12/31/17 17:21 Dose: 1 cap - Labs Labs: 12/31/17 05:45 12/31/17 05:45 PT 12.3 Seconds (9.8-13.1) 12/31/17 05:45 INR 1.1 (0.9-1.2) 12/31/17 05:45 APTT 30.2 Seconds (25.6-37.1) 12/31/17 05:45 Attending/Attestation - Attestation I have personally seen and examined this patient.: Yes I have fully participated in the care of the patient.: Yes I have reviewed all pertinent clinical information, including history, physical exam and plan: Yes
[2017-12-31] MEDS: hydroCHLOROthiazide-Triamterene 25 mg-37.5 mg Cap UD PO SCH (17:21)
[2017-12-31 19:15] LABS: ALBUMIN (PEP) 3.1 g/dL (3.8-4.8); ALPHA-1-GLOBULIN (PEP) 0.3 g/dL (0.2-0.3)
[2018-01-01] MEDS: Insulin Regular 100 units/ml SC SCH ×4 (06:34→21:35)
--- NOTE | 2018-01-01 11:55 | CP.PCM.DIS ---
<Shan Garcia - Last Filed: 01/01/18 11:29> Provider - Provider Date of Admission: 12/26/17 14:29 Attending physician: Cipriano Angel MD Time Spent in preparation of Discharge (in minutes): 20 Diagnosis - Discharge Diagnosis (1) Aortic stenosis Status: Acute Hospital Course - Lab Results Lab Results: Most Recent Lab Values WBC 8.1 K/uL (4.8-10.8) 12/31/17 05:45 RBC 4.02 Mil/uL (3.80-5.20) 12/31/17 05:45 Hgb 12.2 g/dL (12.0-16.0) 12/31/17 05:45 Hct 36.3 % (34.0-47.0) 12/31/17 05:45 MCV 90.2 fl (81.0-99.0) 12/31/17 05:45 MCH 30.3 pg (27.0-31.0) 12/31/17 05:45 MCHC 33.6 g/dL (33.0-37.0) 12/31/17 05:45 RDW 14.6 % (11.5-14.5) H 12/31/17 05:45 Plt Count 220 K/uL (130-400) 12/31/17 05:45 PT 12.3 Seconds (9.8-13.1) 12/31/17 05:45 INR 1.1 (0.9-1.2) 12/31/17 05:45 APTT 30.2 Seconds (25.6-37.1) 12/31/17 05:45 Sodium 140 mmol/l (132-148) 12/31/17 05:45 Potassium 3.7 MMOL/L (3.6-5.0) 12/31/17 05:45 Chloride 99 mmol/L (98-107) 12/31/17 05:45 Carbon Dioxide 29 mmol/L (22-30) 12/31/17 05:45 Anion Gap 16 (10-20) 12/31/17 05:45 BUN 30 mg/dl (7-17) H 12/31/17 05:45 Creatinine 1.1 mg/dl (0.7-1.2) 12/31/17 05:45 Est GFR ( Amer) 57 12/31/17 05:45 Est GFR (Non-Af Amer) 47 12/31/17 05:45 POC Glucose (mg/dL) 109 mg/dL (65-110) 01/01/18 11:10 Random Glucose 110 mg/dL (65-105) H 12/31/17 05:45 Calcium 9.3 mg/dL (8.4-10.2) 12/31/17 05:45 Total Bilirubin 0.5 mg/dl (0.2-1.3) 12/30/17 05:50 AST 22 U/L (14-36) 12/30/17 05:50 ALT 30 U/L (9-52) 12/30/17 05:50 Alkaline Phosphatase 42 U/L (38-126) 12/30/17 05:50 Total Protein 6.8 G/DL (6.3-8.2) 12/30/17 05:50 Total Protein (PEP) 5.6 g/dL (6.1-8.1) L 12/27/17 06:45 Albumin 3.7 g/dL (3.5-5.0) 12/30/17 05:50 Albumin (PEP) 3.1 g/dL (3.8-4.8) L 12/27/17 06:45 Globulin 3.1 gm/dL (2.2-3.9) 12/30/17 05:50 Albumin/Globulin Ratio 1.2 (1.0-2.1) 12/30/17 05:50 Pbbto-2-Ovibptjhq 0.3 g/dL (0.2-0.3) 12/27/17 06:45 Kfcuv-7-Sxlnrzrjl 0.6 g/dL (0.5-0.9) 12/27/17 06:45 Bprv-8-Jjbxcmls 0.4 g/dL (0.4-0.6) 12/27/17 06:45 Mugk-4-Btacwjil 0.2 g/dL (0.2-0.5) 12/27/17 06:45 Gamma Globulins 1.0 g/dL (0.8-1.7) 12/27/17 06:45 Abnorm Protein Band 1 0.10 g/dL (None Detected) H 12/27/17 06:45 Abnorm Protein Band 2 TEST NOT PERFORMED 12/27/17 06:45 Abnorm Protein Band 3 TEST NOT PERFORMED 12/27/17 06:45 CHEPE & SPEP Interp See note 12/27/17 06:45 - Hospital Course Hospital Course: 82 yo F with PMH of HTN, HLD, DM, and Afib (at home on coumadin), admitted to TCU for continued physical therapy after recent admission for gait instability secondary to vertibulobasilar insufficiency and/or severe aortic stenosis. Cardiac catheterization planned at [place] on 01/02/2018 at 10:[address]. Dr. Mcpherson recommended holding coumadin; recent INR: 1.1 on 12/31/2017. Metformin held for cardiac cath. Pt to follow up with Dr. Angel. Discharge Exam - Head Exam Head Exam: ATRAUMATIC Discharge Plan - Discharge Medications Prescriptions: amLODIPine [Norvasc] 10 mg PO DAILY 30 Days #30 tab Aspirin [Aspirin Chewable] 81 mg PO DAILY 30 Days #30 chew Atorvastatin [Lipitor] 20 mg PO DAILY 30 Days #30 tab Lisinopril [Zestril] 10 mg PO QPM 30 Days #30 tab Triamterene/Hydrochlorothiazid [Triamterene-Hctz 37.5-25 mg Cp] 1 cap PO QPM # 30 capsule - Follow Up Plan Condition: GOOD Disposition: HOME/ ROUTINE Additional Instructions: Pt to d/c home after cardiac cath with [place] visiting nurse and per OT: home services. Pt to follow up with Dr. Angel. <Cipriano Angel - Last Filed: 01/03/18 07:00> Provider - Provider Date of Admission: 12/26/17 14:29 Attending physician: Cipriano Angel MD Hospital Course - Lab Results Lab Results: Most Recent Lab Values WBC 10.6 K/uL (4.8-10.8) 01/01/18 19:52 RBC 4.16 Mil/uL (3.80-5.20) 01/01/18 19:52 Hgb 12.8 g/dL (12.0-16.0) 01/01/18 19:52 Hct 38.1 % (34.0-47.0) 01/01/18 19:52 MCV 91.5 fl (81.0-99.0) 01/01/18 19:52 MCH 30.7 pg (27.0-31.0) 01/01/18 19:52 MCHC 33.6 g/dL (33.0-37.0) 01/01/18 19:52 RDW 14.7 % (11.5-14.5) H 01/01/18 19:52 Plt Count 252 K/uL (130-400) 01/01/18 19:52 PT 11.4 Seconds (9.8-13.1) 01/01/18 19:52 INR 1.0 (0.9-1.2) 01/01/18 19:52 APTT 30.2 Seconds (25.6-37.1) 12/31/17 05:45 Sodium 138 mmol/l (132-148) 01/01/18 19:52 Potassium 3.9 MMOL/L (3.6-5.0) 01/01/18 19:52 Chloride 93 mmol/L (98-107) L 01/01/18 19:52 Carbon Dioxide 31 mmol/L (22-30) H 01/01/18 19:52 Anion Gap 18 (10-20) 01/01/18 19:52 BUN 34 mg/dl (7-17) H 01/01/18 19:52 Creatinine 1.3 mg/dl (0.7-1.2) H 01/01/18 19:52 Est GFR ( Amer) 47 01/01/18 19:52 Est GFR (Non-Af Amer) 39 01/01/18 19:52 POC Glucose (mg/dL) 120 mg/dL (65-110) H 01/02/18 04:29 Random Glucose 121 mg/dL (65-105) H 01/01/18 19:52 Calcium 9.6 mg/dL (8.4-10.2) 01/01/18 19:52 Total Bilirubin 0.5 mg/dl (0.2-1.3) 01/01/18 19:52 AST 27 U/L (14-36) 01/01/18 19:52 ALT 31 U/L (9-52) 01/01/18 19:52 Alkaline Phosphatase 51 U/L (38-126) 01/01/18 19:52 Total Protein 7.8 G/DL (6.3-8.2) 01/01/18 19:52 Total Protein (PEP) 5.6 g/dL (6.1-8.1) L 12/27/17 06:45 Albumin 4.2 g/dL (3.5-5.0) 01/01/18 19:52 Albumin (PEP) 3.1 g/dL (3.8-4.8) L 12/27/17 06:45 Globulin 3.6 gm/dL (2.2-3.9) 01/01/18 19:52 Albumin/Globulin Ratio 1.2 (1.0-2.1) 01/01/18 19:52 Iqfcs-0-Qlixqjowd 0.3 g/dL (0.2-0.3) 12/27/17 06:45 Thnxl-1-Jwtmqsodi 0.6 g/dL (0.5-0.9) 12/27/17 06:45 Bwvr-3-Pfenyuon 0.4 g/dL (0.4-0.6) 12/27/17 06:45 Mboa-5-Izqicrjk 0.2 g/dL (0.2-0.5) 12/27/17 06:45 Gamma Globulins 1.0 g/dL (0.8-1.7) 12/27/17 06:45 Abnorm Protein Band 1 0.10 g/dL (None Detected) H 12/27/17 06:45 Abnorm Protein Band 2 TEST NOT PERFORMED 12/27/17 06:45 Abnorm Protein Band 3 TEST NOT PERFORMED 12/27/17 06:45 CHEPE & SPEP Interp See note 12/27/17 06:45 Attending/Attestation - Attestation I have personally seen and examined this patient.: Yes I have fully participated in the care of the patient.: Yes I have reviewed all pertinent clinical information, including history, physical exam and plan: Yes
--- NOTE | 2018-01-01 12:53 | CP.PCM.PN ---
Subjective - Date & Time of Evaluation Date of Evaluation: 01/01/18 Time of Evaluation: 10:00 - Subjective Subjective: NO CHEST PAIN OR SOB Objective - Vital Signs/Intake and Output Vital Signs (last 24 hours): Temp Pulse Resp BP Pulse Ox 97.2 F L 68 20 138/60 99 01/01/18 08:14 01/01/18 09:10 01/01/18 08:14 01/01/18 09:10 01/01/18 08:14 - Medications Medications: Current Medications Amlodipine Besylate (Norvasc) 5 mg PO DAILY [facility] Last Admin: 01/01/18 09:10 Dose: 5 mg Aspirin (Aspirin Chewable) 81 mg PO DAILY [facility] Last Admin: 01/01/18 09:11 Dose: 81 mg Atorvastatin Calcium (Lipitor) 20 mg PO HS [facility] Last Admin: 12/31/17 21:33 Dose: 20 mg Dextrose (Dextrose 50% Inj) 0 ml IV STAT PRN; Protocol PRN Reason: Hypoglycemia Protocol Dextrose (Glutose 15) 0 gm PO ONCE PRN; Protocol PRN Reason: Hypoglycemia Protocol Glucagon (Glucagen Diagnostic Kit) 0 mg IM STAT PRN; Protocol PRN Reason: Hypoglycemia Protocol Insulin Human Regular (Humulin R) 0 units SC ACHS [facility] PRN Reason: Protocol Last Admin: 01/01/18 12:02 Dose: Not Given Metformin HCl (Glucophage) 500 mg PO BID [facility] Last Admin: 12/28/17 08:06 Dose: 500 mg Sitagliptin Phosphate (Januvia) 50 mg PO BID [facility] Last Admin: 01/01/18 09:10 Dose: 50 mg Triamterene/HCTZ (Dyazide 25 Mg-37.5 Mg) 1 cap PO QPM [facility] Last Admin: 12/31/17 17:21 Dose: 1 cap - Labs Labs: 12/31/17 05:45 12/31/17 05:45 PT 12.3 Seconds (9.8-13.1) 12/31/17 05:45 INR 1.1 (0.9-1.2) 12/31/17 05:45 APTT 30.2 Seconds (25.6-37.1) 12/31/17 05:45 - Respiratory Exam Respiratory Exam: Clear to Ausculation Bilateral - Cardiovascular Exam Cardiovascular Exam: Irregular Rhythm, +S1, +S2 Assessment and Plan - Assessment and Plan (Free Text) Assessment: AORTIC STENOSIS AND MITRAL STENOSIS CHRONIC ATRIAL FIBRILLATION HYPERTENSION HYPERLIPIDEMIA TYPE 2 DM Plan: FOR DISCHARGE TO [facility] TOMORROW FOR A CARDIAC CATH
[2018-01-01] MEDS: hydroCHLOROthiazide-Triamterene 25 mg-37.5 mg Cap UD PO SCH (17:21)
[2018-01-01 20:33] VITALS: BP 135/55; PULSE 75; TEMP 97.5; O2SAT 98
[2018-01-01 21:49] LABS: HEMOGLOBIN 12.8 g/dL (12.0-16.0); MEAN CELL VOLUME 91.5 fl (81.0-99.0); MEAN CORPUSCULAR HEMOGLOBIN 30.7 pg (27.0-31.0); MEAN CORPUSCULAR HGB CONC 33.6 g/dL (33.0-37.0); RBC 4.16 Mil/uL (3.80-5.20); RED CELL DISTRIBUTION WIDTH 14.7 % (11.5-14.5); WHITE BLOOD COUNT 10.6 K/uL (4.8-10.8)
[2018-01-01 22:06] LABS: PROTHROMBIN TIME 11.4 Seconds (9.8-13.1)
[2018-01-01 22:38] LABS: ALB/GLOB RATIO 1.2 (1.0-2.1); ALBUMIN 4.2 g/dL (3.5-5.0); CALCIUM 9.6 mg/dL (8.4-10.2)
== END 2018-01-02 05:45 | disposition short-term general hospital (02) | DRG 92 ==
LOC: H.TCU 14:29
PROVIDERS: ADMIT Family Medicine; ATTEND Family Medicine
PROC: F07Z9FZ Gait Training/Functional Ambulation Treatment using Assistive, Adaptive, Supportive or Protective Equipment (ICD-10-PCS; principal; 2017-12-26)
PROC: F08Z4FZ Home Management Treatment using Assistive, Adaptive, Supportive or Protective Equipment (ICD-10-PCS; 2017-12-26)
PROC: F07M6FZ Therapeutic Exercise Treatment of Musculoskeletal System - Whole Body using Assistive, Adaptive, Supportive or Protective Equipment (ICD-10-PCS; 2017-12-27)
DX: R26.81 Unsteadiness on feet (principal); G45.0 Vertebro-basilar artery syndrome; I08.0 Rheumatic disorders of both mitral and aortic valves; E11.9 Type 2 diabetes mellitus without complications; I48.2 Chronic atrial fibrillation; I10 Essential (primary) hypertension; E78.5 Hyperlipidemia, unspecified; G62.9 Polyneuropathy, unspecified; E78.00 Pure hypercholesterolemia, unspecified; H91.91 Unspecified hearing loss, right ear; M48.061 Spinal stenosis, lumbar region without neurogenic claudication; Z86.73 Personal history of transient ischemic attack (TIA), and cerebral infarction without residual deficits; Z87.891 Personal history of nicotine dependence; Z90.710 Acquired absence of both cervix and uterus; Z88.1 Allergy status to other antibiotic agents